=== PATIENT | female | born 1945 | race Caucasian/White ===

== ENCOUNTER 2016-12-18 12:01 | Emergency (ER) | payer MEDICARE ==
[2016-12-18 12:22] VITALS: TEMP 98.3
[2016-12-18] MEDS ORDERED: ASPIRIN 325 MG TAB PO STA (13:28)
--- NOTE | 2016-12-18 14:45 | XR ---
EXAMINATION TYPE: XR chest 2V DATE OF EXAM: 12/18/2016 2:40 PM COMPARISON: 08/10/2012 HISTORY: Chest pain TECHNIQUE: Frontal and lateral views of the chest are obtained. FINDINGS: Heart and mediastinum are normal. Lungs are clear. There is no heart failure. There are no hilar masses. Costophrenic angles are clear. There are sternal wires. IMPRESSION: No active cardiopulmonary disease. Normal heart. No change.
--- NOTE | 2016-12-18 14:52 | ED ---
General Adult HPI - General Chief complaint: Extremity Problem,Nontraumatic Stated complaint: shoulder pain Time Seen by Provider: 12/18/16 12:29 Source: patient Mode of arrival: ambulatory Limitations: no limitations - History of Present Illness Initial comments: 8-year-old female with a past medical history of HLD, HTN, CABG presenting for evaluation of left shoulder/back pain since this morning. She states that she woke up and got out of the shower and was going about her normal day when she experienced pain in her back just below her left shoulder blade. She denies any associated chest pain or shortness of breath although she states that with deep inspiration she can make the pain worse. There is no reproducibility of the pain with left arm movement although she states when she shrugs her left shoulder she can make it a little bit more apparent. She denies any associated symptoms including nausea/vomiting, diaphoresis, lightheadedness/dizziness. There is no preceding injury. Her last stress test was more than 2 years ago and she states that her bypass was in 2006. - Related Data Home Medications Medication Instructions Recorded Confirmed Albuterol Sulfate [Proair Hfa] 2 puff INHALATION RT-Q6H PRN 12/18/16 12/18/16 Aspirin EC [Ecotrin] 325 mg PO DAILY 12/18/16 12/18/16 Atenolol 100 mg PO BID 12/18/16 12/18/16 Atorvastatin [Lipitor] 10 mg PO HS 12/18/16 12/18/16 Calcium Carbonate/Vitamin D3 1 tab PO DAILY 12/18/16 12/18/16 [Calcium 500-Vit D3 600 Tablet] DULoxetine HCL [Cymbalta] 60 mg PO DAILY 12/18/16 12/18/16 Furosemide [Lasix] 40 mg PO DAILY 12/18/16 12/18/16 Lansoprazole [Prevacid] 30 mg PO DAILY 12/18/16 12/18/16 Levothyroxine Sodium [Synthroid] 100 mcg PO DAILY 12/18/16 12/18/16 Lidocaine 5% Patch [Lidoderm] 1 patch TOPICAL DAILY PRN 12/18/16 12/18/16 Meloxicam [Mobic] 7.5 mg PO BID 12/18/16 12/18/16 Mometasone Furoate [Asmanex] 2 puff INHALATION RT-HS 12/18/16 12/18/16 Montelukast [Singulair] 10 mg PO HS 12/18/16 12/18/16 Potassium Chloride [K-Tab ER] 10 meq PO DAILY 12/18/16 12/18/16 amLODIPine [Norvasc] 10 mg PO HS 12/18/16 12/18/16 cloNIDine HCL [Catapres] 0.1 mg PO BID 12/18/16 12/18/16 Previous Rx's Medication Instructions Recorded Ibuprofen [Motrin] 800 mg PO Q8HR PRN #20 tab 12/18/16 Allergies Allergy/AdvReac Type Severity Reaction Status Date / Time hydromorphone [From Dilaudid] Allergy Itching Verified 12/18/16 12:39 Penicillins Allergy Rash/Hives Verified 12/18/16 12:39 Sulfa (Sulfonamide Allergy Rash/Hives Verified 12/18/16 12:39 Antibiotics) GENIE Inhibitors AdvReac Swelling Verified 12/18/16 12:39 Review of Systems ROS Statement: Those systems with pertinent positive or pertinent negative responses have been documented in the HPI. General: Patient denies fever, chills,nausea, or vomiting. HEENT: No visual changes. No eye pain. No nasal symptoms. No dysphagia.No odynophagia. No ENT pain. Cardiac: No chest pain. No palpitations. Pulmonary; No dyspnea. No cough. GI: No abdominal pain. No diarrhea. No constipation. No bowel habit changes. No melena. No hematochezia. : No dysuria.No hematuria. No hesitancy. No urgency. No renal lithiasis history. Musculoskeletal: Positive left upper back pain underneath and inferior to her left scapula, denies myalgias. Orthopedic: Denies fracture history. Denies arthralgias. Integumentary: Denies rash. Denies pruritis. Neurologic: Denies any lateralizing weakness. Denies numbness. Denies tingling. No seizure activity. Denies TIA or CVA. Heme/Onc: Denies anemia. Denies cancer. Denies adenopathy. ROS Other: All systems not noted in ROS Statement are negative. Past Medical History Past Medical History: Asthma, Chest Pain / Angina, GERD/Reflux, Hyperlipidemia, Hypertension, Thyroid Disorder History of Any Multi-Drug Resistant Organisms: None Reported Past Surgical History: Cholecystectomy, Coronary Bypass/CABG, Joint Replacement , Orthopedic Surgery Additional Past Surgical History / Comment(s): shoulder Past Psychological History: No Psychological Hx Reported Smoking Status: Never smoker Past Alcohol Use History: None Reported Past Drug Use History: None Reported General Exam - General Exam Comments Initial Comments: General: The patient is awake and alert, in no distress, and does not appear acutely ill. Eye: Pupils are equal, round and reactive to light, extra-ocular movements are intact; there is normal conjunctiva bilaterally. No signs of icterus. Ears, nose, mouth and throat: There are moist mucous membranes and no oral lesions. Neck: The neck is supple, there is no tenderness or JVD. Cardiovascular: There is a regular rate and rhythm. No murmur, rub or gallop is appreciated. Respiratory: Lungs are clear to auscultation, respirations are non-labored, breath sounds are equal. No wheezes, stridor, rales, or rhonchi. Gastrointestinal: Soft, non-distended, non-tender abdomen without masses or organomegaly noted. There is no rebound or guarding present. No CVA tenderness. Back: There is no tenderness to palpation in the midline. There is no obvious deformity. No rashes noted. Musculoskeletal: Normal ROM, no tenderness, There is no pedal edema. There is no calf tenderness or swelling. Sensation intact. Pulses equal bilaterally 2+. Neurological: CN II-XII intact, There are no obvious motor or sensory deficits. Coordination appears grossly intact. Speech is normal. Skin: Skin is warm and dry and no rashes or lesions are noted. Psychiatric: Cooperative, appropriate mood & affect, normal judgment. Limitations: no limitations Course Vital Signs 12/18/16 12/18/16 12:19 15:16 Temperature 98.3 F Pulse Rate 76 64 Respiratory 18 15 Rate Blood Pressure 146/78 128/59 O2 Sat by Pulse 100 93 L Oximetry EKG Findings - EKG Comments: EKG Findings:: Normal sinus rhythm with a ventricular rate of 60, SAVANNAH 180, QRS 92, QT/QTC 434/434 Medical Decision Making - Medical Decision Making 71-year-old female with a past medical history of H LD, HTN, angina, CABG presented for evaluation of left sided back pain inferior to the left scapula. Pain began after she got the shower and is worse with movement of her left shoulder. On physical examination the pain is reproducible with left shoulder movement and is likely more musculoskeletal than cardiac in etiology. But due to her past medical history of coronary artery disease with CABG will obtain ACS evaluation. Patient has a well score of 0, is afebrile, and denies productive cough. Labs revealed no significant abnormalities, chest x-ray showed no acute process , and second troponin was also negative. Admission for repeat stress test was offered to the patient but she stated that she was adamant about going home today. Given her normal vital signs and test results discussion was had with patient and through shared decision making it was decided that she would be discharged home with instructions to follow-up with her primary care physician on Tuesday. Patient has a HEART score of 3 with a relative risk of MACE at 0.9- 1.7%. She is further advised to return to this facility if her symptoms should worsen or persist. She acknowledged an understanding of this information and agreed with this plan of care. - Lab Data Result diagrams: 12/18/16 14:50 12/18/16 14:50 Lab Results 12/18/16 12/18/16 12/18/16 Range/Units 14:50 14:50 14:50 WBC 5.5 (3.8-10.6) k/uL RBC 5.03 (3.80-5.40) m/uL Hgb 12.5 (11.4-16.0) gm/dL Hct 42.0 (34.0-46.0) % MCV 83.4 (80.0-100.0) fL MCH 24.9 L (25.0-35.0) pg MCHC 29.8 L (31.0-37.0) g/dL RDW 15.3 (11.5-15.5) % Plt Count 227 (150-450) k/uL Neutrophils % 60 % Lymphocytes % 26 % Monocytes % 6 % Eosinophils % 3 % Basophils % 1 % Neutrophils # 3.3 (1.3-7.7) k/uL Lymphocytes # 1.4 (1.0-4.8) k/uL Monocytes # 0.3 (0-1.0) k/uL Eosinophils # 0.2 (0-0.7) k/uL Basophils # 0.1 (0-0.2) k/uL Hypochromasia Marked Sodium 144 (137-145) mmol/L Potassium 4.6 (3.5-5.1) mmol/L Chloride 102 (98-107) mmol/L Carbon Dioxide 30 (22-30) mmol/L Anion Gap 12 mmol/L BUN 16 (7-17) mg/dL Creatinine 0.91 (0.52-1.04) mg/dL Est GFR (MDRD) Af Amer >60 (>60 ml/min/1.73 sqM) Est GFR (MDRD) Non-Af >60 (>60 ml/min/1.73 sqM) Glucose 98 (74-99) mg/dL Calcium 9.6 (8.4-10.2) mg/dL Troponin I <0.012 (0.000-0.034) ng/mL 12/18/16 Range/Units 16:43 WBC (3.8-10.6) k/uL RBC (3.80-5.40) m/uL Hgb (11.4-16.0) gm/dL Hct (34.0-46.0) % MCV (80.0-100.0) fL MCH (25.0-35.0) pg MCHC (31.0-37.0) g/dL RDW (11.5-15.5) % Plt Count (150-450) k/uL Neutrophils % % Lymphocytes % % Monocytes % % Eosinophils % % Basophils % % Neutrophils # (1.3-7.7) k/uL Lymphocytes # (1.0-4.8) k/uL Monocytes # (0-1.0) k/uL Eosinophils # (0-0.7) k/uL Basophils # (0-0.2) k/uL Hypochromasia Sodium (137-145) mmol/L Potassium (3.5-5.1) mmol/L Chloride (98-107) mmol/L Carbon Dioxide (22-30) mmol/L Anion Gap mmol/L BUN (7-17) mg/dL Creatinine (0.52-1.04) mg/dL Est GFR (MDRD) Af Amer (>60 ml/min/1.73 sqM) Est GFR (MDRD) Non-Af (>60 ml/min/1.73 sqM) Glucose (74-99) mg/dL Calcium (8.4-10.2) mg/dL Troponin I <0.012 (0.000-0.034) ng/mL Disposition Clinical Impression: Back pain Disposition: HOME SELF-CARE Condition: Stable Prescriptions: Ibuprofen [Motrin] 800 mg PO Q8HR PRN #20 tab PRN Reason: Analgesia Referrals: Rafi Tiwari MD [Primary Care Provider] - 1-2 days Time of Disposition: 17:35
[2016-12-18 15:02] LABS: Basophils # (A) 0.1 k/uL (0-0.2); Basophils % (A) 1 %; CHCM 30.1; Eosinophils # (A) 0.2 k/uL (0-0.7); Eosinophils % (A) 3 %; HDW 3.08; HGB 12.5 gm/dL (11.4-16.0); Hypochromasia Marked; Luc # (Auto) 0.18; Luc % (Auto) 3; Lymphocytes # (A) 1.4 k/uL (1.0-4.8); Lymphocytes % (A) 26 %; MCH 24.9 pg (25.0-35.0); MCHC 29.8 g/dL (31.0-37.0); MCV 83.4 fL (80.0-100.0); Mean Platelet Volume 9.1; Monocytes # (A) 0.3 k/uL (0-1.0); Monocytes % (A) 6 %; Neutrophils # (A) 3.3 k/uL (1.3-7.7); Neutrophils % (A) 60 %; RBC 5.03 m/uL (3.80-5.40); RDW 15.3 % (11.5-15.5); WBC 5.5 k/uL (3.8-10.6); WBC (Perox) 5.45
[2016-12-18 15:20] LABS: Anion Gap 12 mmol/L; Blood Urea Nitrogen 16 mg/dL (7-17); Calcium 9.6 mg/dL (8.4-10.2); Carbon Dioxide 30 mmol/L (22-30); Chloride 102 mmol/L (98-107); Glucose 98 mg/dL (74-99); Non-African American GFR(MDRD) >60 (>60 ml/min/1.73 sqM); Potassium 4.6 mmol/L (3.5-5.1); Sodium 144 mmol/L (137-145)
[2016-12-18 17:52] VITALS: BP 134/62; PULSE 75; RESP 18
== END 2016-12-18 17:51 | disposition home or self-care (01) ==
LOC: EC 12:01
DX: M54.9 Dorsalgia, unspecified (principal); M25.512 Pain in left shoulder; I10 Essential (primary) hypertension; E07.9 Disorder of thyroid, unspecified; E78.5 Hyperlipidemia, unspecified; K21.9 Gastro-esophageal reflux disease without esophagitis; J45.909 Unspecified asthma, uncomplicated; Z95.1 Presence of aortocoronary bypass graft; I25.10 Atherosclerotic heart disease of native coronary artery without angina pectoris; Z79.82 Long term (current) use of aspirin; Z79.899 Other long term (current) drug therapy; Z88.5 Allergy status to narcotic agent; Z88.0 Allergy status to penicillin; Z88.2 Allergy status to sulfonamides; Z88.8 Allergy status to other drugs, medicaments and biological substances; X58.XXXA Exposure to other specified factors, initial encounter
CPT/HCPCS: 36415; 71020; 80048; 84484; 85025; 93005; 99283

== ENCOUNTER 2017-06-29 11:29 | Emergency (ER) | payer OTHER, MEDICARE ==
[2017-06-29] MEDS ORDERED: DIPH,PERTUS(ACELL)TETVAC-LF 0.5 ML VIAL IM ONE (11:53)
[2017-06-29 12:02] VITALS: RESP 18
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
--- NOTE | 2017-06-29 12:31 | XR ---
EXAMINATION TYPE: XR knee complete bilateral DATE OF EXAM: 06/29/2017 COMPARISON: NONE HISTORY: Pain TECHNIQUE: 3 views of each knee are submitted. FINDINGS: Postsurgical change involving the right knee. Vascular calcifications noted. Postsurgical change involving the left knee with numerous surgical clips additionally within the soft tissues. Mild diffuse osteopenia. Vascular calcifications noted. IMPRESSION: 1. No acute fracture or dislocation. 2. Postsurgical changes.
--- NOTE | 2017-06-29 12:33 | XR ---
EXAMINATION TYPE: XR chest 2V DATE OF EXAM: 06/29/2017 COMPARISON: 12/18/2016 TECHNIQUE: PA and lateral views submitted. HISTORY: Pain FINDINGS: The lungs are clear and there is no pneumothorax, pleural effusion, or focal pneumonia. Arthropathy left shoulder and postsurgical change right shoulder. Sternotomy wires noted. Hypertrophic and degen erative change of the spine. Heart is prominent. Limited inspiration limits assessment. Apical pleura l IMPRESSION: 1. No acute process.
[2017-06-29 13:19] VITALS: BP 124/60; PULSE 69; TEMP 98
== END 2017-06-29 13:19 | disposition home or self-care (01) ==
LOC: EC 11:29
DX: S80.02XA Contusion of left knee, initial encounter (principal); S80.01XA Contusion of right knee, initial encounter; S50.812A Abrasion of left forearm, initial encounter; J45.909 Unspecified asthma, uncomplicated; E78.5 Hyperlipidemia, unspecified; I10 Essential (primary) hypertension; K21.9 Gastro-esophageal reflux disease without esophagitis; E07.9 Disorder of thyroid, unspecified; Z23 Encounter for immunization; Z79.82 Long term (current) use of aspirin; Z79.899 Other long term (current) drug therapy; Z88.5 Allergy status to narcotic agent; Z88.0 Allergy status to penicillin; Z88.2 Allergy status to sulfonamides; Z88.8 Allergy status to other drugs, medicaments and biological substances; Z96.659 Presence of unspecified artificial knee joint; Z98.61 Coronary angioplasty status; V59.59XA Passenger in pick-up truck or van injured in collision with other motor vehicles in traffic accident, initial encounter; Y92.410 Unspecified street and highway as the place of occurrence of the external cause
CPT/HCPCS: 71020; 90471; 90715; 99284

== ENCOUNTER → 2018-11-23 | Outpatient (CLI) | payer MEDICARE ==
--- NOTE | 2018-11-23 14:44 | CT ---
EXAMINATION TYPE: CT abdomen w con DATE OF EXAM: 11/23/2018 COMPARISON: 09/02/2016 HISTORY: LUQ PAIN CT DLP: 1733.20 mGycm CONTRAST: CT scan of the abdomen is performed with Oral Contrast and with IV Contrast, patient injected with 10 0 mL of Isovue 300. FINDINGS: LUNG BASES-: No visible nodule. No infiltrate. Moderate fixed hiatal hernia LIVER/GB: Cholecystectomy clips are noted. Mild fatty liver. No space occupying hepatic lesion. Bi liary tree is of normal caliber. PANCREAS: No inflammation. No distinct mass. SPLEEN: No splenic enlargement. No lesion seen. ADRENALS: No nodule. No thickening. KIDNEYS/BLADDER: No hydronephrosis. No nephrolithiasis. No distinct renal mass. Urinary bladder g rossly unremarkable. BOWEL: Normal appendix. Normal bowel caliber. No inflammation. LYMPH NODES: No greater than 1cm abdominal or pelvic lymph nodes are appreciated. AORTA: No significant abnormality. OSSEOUS STRUCTURES: No significant abnormality is seen. OTHER: No significant additional abnormality is seen. IMPRESSION: 1. No significant abnormality to account for the patient's symptoms. 2. Moderate fixed hiatal hernia.
== END | disposition home or self-care (01) ==
LOC: RADCTMAIN 12:56
PROVIDERS: ATTEND Internal Medicine
DX: K44.9 Diaphragmatic hernia without obstruction or gangrene (principal)
CPT/HCPCS: 82565; 84520; 74160; 36415; Q9967

== ENCOUNTER → 2018-11-27 | Outpatient (CLI) | payer MEDICARE ==
--- NOTE | 2018-11-27 14:35 | XR ---
Cervical spine HISTORY: Spondylosis, neck pain 6 views of the cervical spine No comparisons Facet arthropathy changes are extensive. Patient is post median sternotomy. Oblique images show sunil inal encroachment at C5-6 bilaterally. There is motion on the exam. Lower foramina are not well evalu ated on the right. There is a retrolisthesis grade 1 C3-4, C4-5 and C5-6. Loss of disc height present C3-4, C4-5 and C5-6. Vertebral bodies show preserved height, there is multilevel spondylosis. Bone m ineralization is reduced. Odontoid view not optimal. Patient is post median sternotomy. The aorta is dense. C7-T1 not well seen. IMPRESSION: Degenerative disc disease and facet arthropathy. Osteopenia. Some limitations.
== END ==
LOC: RADXRMAIN 13:27
PROVIDERS: ATTEND Internal Medicine
DX: M50.30 Other cervical disc degeneration, unspecified cervical region (principal); M46.92 Unspecified inflammatory spondylopathy, cervical region; M85.88 Other specified disorders of bone density and structure, other site
CPT/HCPCS: 72050

== ENCOUNTER 2019-01-21 22:36 | Inpatient (IN) | payer MEDICARE ==
[2019-01-21] MEDS ORDERED: HEPARIN SODIUM,PORCINE 5,000 UNIT/ML 1 ML VIAL IV STA (23:07)
[2019-01-21] MEDS ORDERED: NITROGLYCERIN OINT 1 INCH/GM PACKET TOPICAL STA (23:07)
--- NOTE | 2019-01-21 23:14 | ED ---
Chest Pain HPI - General Chief Complaint: Chest Pain Stated Complaint: Chest Pain Time Seen by Provider: 01/21/19 22:42 Source: patient, family, RN notes reviewed, old records reviewed Mode of arrival: ambulatory Limitations: no limitations - History of Present Illness Initial Comments: This is a 73-year-old female history of heart disease in the past with a quad bypass 2006 who states she had the onset around 10 PM this evening of retrosternal mid chest pain 7/10 severity with right shoulder pain associated with it. She states it was dull lasted about 30 minutes. Then it resolved slowly. She states additionally she had a similar episode about 2 weeks ago that lasted 2 hours. Currently she has no pain she did have nausea with this episode no shortness of breath or other symptoms. She does inform me that Dr. Bustos her hydrographical technical officer stated that she may have one of the grafts is failing. MD Complaint: chest pain - Related Data Home Medications Medication Instructions Recorded Confirmed Albuterol Sulfate [Proair Hfa] 2 puff INHALATION RT-Q6H PRN 12/18/16 01/21/19 Aspirin EC [Ecotrin] 325 mg PO DAILY 12/18/16 01/21/19 Atenolol 100 mg PO BID 12/18/16 01/21/19 Atorvastatin [Lipitor] 10 mg PO HS 12/18/16 01/21/19 Calcium Carbonate/Vitamin D3 1 tab PO DAILY 12/18/16 01/21/19 [Calcium 500-Vit D3 600 Tablet] Furosemide [Lasix] 40 mg PO DAILY 12/18/16 01/21/19 Lansoprazole [Prevacid] 30 mg PO DAILY 12/18/16 01/21/19 Levothyroxine Sodium [Synthroid] 100 mcg PO DAILY 12/18/16 01/21/19 Lidocaine 5% Patch [Lidoderm] 1 patch TOPICAL DAILY PRN 12/18/16 01/21/19 Mometasone Furoate [Asmanex] 1 puff INHALATION RT-HS 12/18/16 01/21/19 Montelukast [Singulair] 10 mg PO HS 12/18/16 01/21/19 Potassium Chloride [K-Tab ER] 10 meq PO DAILY 12/18/16 01/21/19 amLODIPine [Norvasc] 10 mg PO HS 12/18/16 01/21/19 cloNIDine HCL [Catapres] 0.1 mg PO BID 12/18/16 01/21/19 DULoxetine HCL [Cymbalta] 90 mg PO DAILY 01/21/19 01/21/19 Dexlansoprazole [Dexilant] 60 mg PO DAILY PRN 01/21/19 01/21/19 Allergies Allergy/AdvReac Type Severity Reaction Status Date / Time hydromorphone [From Dilaudid] Allergy Itching Verified 01/21/19 23:00 Penicillins Allergy Rash/Hives Verified 01/21/19 23:00 Sulfa (Sulfonamide Allergy Rash/Hives Verified 01/21/19 23:00 Antibiotics) GENIE Inhibitors AdvReac Swelling Verified 01/21/19 23:00 Review of Systems ROS Statement: Those systems with pertinent positive or pertinent negative responses have been documented in the HPI. ROS Other: All systems not noted in ROS Statement are negative. EKG Findings - EKG Results: EKG: interpreted by ERMMadison, sinus rhythm (Sinus rhythm of 80. Interval 150 QRS duration 94 QT since QTC 370/[address] configuration there is evidence of inferior changes also some lateral changes. This is consistent with an EKG dated 12/10/16) Past Medical History Past Medical History: Asthma, Chest Pain / Angina, GERD/Reflux, Hyperlipidemia, Hypertension, Thyroid Disorder History of Any Multi-Drug Resistant Organisms: None Reported Past Surgical History: Cholecystectomy, Coronary Bypass/CABG, Joint Replacement , Orthopedic Surgery Additional Past Surgical History / Comment(s): shoulder Past Psychological History: No Psychological Hx Reported Smoking Status: Never smoker Past Alcohol Use History: None Reported Past Drug Use History: None Reported General Exam - General Exam Comments Initial Comments: This is a well-developed well-nourished awake alert oriented 3 female Limitations: no limitations General appearance: alert, in no apparent distress Head exam: Present: atraumatic, normocephalic, normal inspection Eye exam: Present: normal appearance, PERRL, EOMI. Absent: scleral icterus, conjunctival injection, periorbital swelling ENT exam: Present: normal exam, mucous membranes moist Neck exam: Present: normal inspection. Absent: tenderness, meningismus, lymphadenopathy Respiratory exam: Present: normal lung sounds bilaterally. Absent: respiratory distress, wheezes, rales, rhonchi, stridor Cardiovascular Exam: Present: regular rate, normal rhythm, normal heart sounds. Absent: systolic murmur, diastolic murmur, rubs, gallop, clicks GI/Abdominal exam: Present: soft, normal bowel sounds. Absent: distended, tenderness, guarding, rebound, rigid Extremities exam: Present: normal inspection, full ROM, normal capillary refill. Absent: tenderness, pedal edema, joint swelling, calf tenderness Back exam: Present: normal inspection Neurological exam: Present: alert, oriented X3, CN II-XII intact Psychiatric exam: Present: normal affect, normal mood Skin exam: Present: warm, dry, intact, normal color. Absent: rash Course Vital Signs 01/21/19 22:37 Temperature 98 F Pulse Rate 75 Respiratory 16 Rate Blood Pressure 142/73 O2 Sat by Pulse 100 Oximetry - Reevaluation(s) Reevaluation #1: 01/21/19 23:56 No change in patient's status she is pain-free at this time Chest Pain MDM - MDM I did review the imaging no acute findings are seen. Patient does have evidence of ACS/unstable angina she will be admitted I did discuss this with the patient and her and with Dr. Tiwari. Critical Care Time Critical Care Time: Yes Critical Care Time: 31 minutes of critical care time which includes initial presentation with history physical labs x-rays reevaluation patient several occasions discuss with the patient regarding findings review of old charting was available discussed with Dr. Tiwari admission orders and documentation of the above. Disposition Clinical Impression: Acute coronary syndrome, Unstable angina pectoris Disposition: ADMITTED IP TO THIS [facility] Condition: Stable Referrals: Rafi Tiwari MD [Primary Care Provider] - 1-2 days
[2019-01-21] MEDS ORDERED: HEPARIN SOD,PORK IN 0.45% NACL 25,000 UNIT in 0.45% NACL 1 250ML.BAG IV SCH (23:15)
[2019-01-21 23:24] LABS: Basophils # (A) 0.1 k/uL (0-0.2); Basophils % (A) 1 %; Eosinophils # (A) 0.3 k/uL (0-0.7); Eosinophils % (A) 3 %; HCT 40.4 % (34.0-46.0); HGB 12.7 gm/dL (11.4-16.0); Hypochromasia Moderate; Lymphocytes # (A) 2.3 k/uL (1.0-4.8); Lymphocytes % (A) 28 %; MCH 26.3 pg (25.0-35.0); MCHC 31.5 g/dL (31.0-37.0); MCV 83.6 fL (80.0-100.0); Monocytes # (A) 0.6 k/uL (0-1.0); Monocytes % (A) 8 %; Neutrophils # (A) 4.8 k/uL (1.3-7.7); Neutrophils % (A) 58 %; Platelet Count 271 k/uL (150-450); RBC 4.83 m/uL (3.80-5.40); RDW 15.1 % (11.5-15.5); WBC 8.2 k/uL (3.8-10.6)
[2019-01-21 23:32] LABS: INR 0.9 (<1.2); Partial Thromboplastin Time 22.4 sec (22.0-30.0); Prothrombin Time 9.9 sec (9.0-12.0)
[2019-01-21 23:33] LABS: Albumin 4.2 g/dL (3.5-5.0); Calcium 9.7 mg/dL (8.4-10.2); Potassium 4.4 mmol/L (3.5-5.1); Total Bilirubin 0.6 mg/dL (0.2-1.3); Total Protein 7.3 g/dL (6.3-8.2)
[2019-01-21] MEDS ORDERED: SODIUM CHLORIDE 0.9% 1,000 ML IV SCH (23:45)
[2019-01-21] MEDS ORDERED: NITROGLYCERIN SL TABS 0.4 MG TAB SUBLINGUAL PRN (23:57)
[2019-01-21] MEDS ORDERED: ALBUTEROL NEBULIZED 2.5 MG/3 ML INHALATION PRN (23:59)
[2019-01-21] MEDS ORDERED: PANTOPRAZOLE 40 MG TABLET PO PRN (23:59)
--- NOTE | 2019-01-22 | XR ---
EXAM: XR Chest, 2 Views CLINICAL HISTORY: ITS.REASON XR Reason: Chest Pain TECHNIQUE: Frontal and lateral views of the chest. COMPARISON: No relevant prior studies available. FINDINGS: Lungs: Unremarkable. No consolidation. Pleural space: Unremarkable. No pneumothorax. Heart: Unremarkable. No cardiomegaly. Mediastinum: A large hiatal hernia appears to be present. Bones/joints: No acute fracture. IMPRESSION: A large hiatal hernia appears to be present.
--- NOTE | 2019-01-22 00:04 | ED ---
Medical Decision Making - Medical Decision Making Cardiac monitoring: Cardiac monitoring was ordered patient did present with chest pain consistent with unstable angina, acute coronary syndrome. Monitoring was 4 evaluation of dysrhythmia. Normal sinus rhythm rate of [address]-T wave changes seen at the time of initial evaluation. - Lab Data Result diagrams: 01/21/19 22:50 01/21/19 22:50 Lab Results 01/21/19 01/21/19 01/21/19 Range/Units 22:50 22:50 22:50 WBC 8.2 (3.8-10.6) k/uL RBC 4.83 (3.80-5.40) m/uL Hgb 12.7 (11.4-16.0) gm/dL Hct 40.4 (34.0-46.0) % MCV 83.6 (80.0-100.0) fL MCH 26.3 (25.0-35.0) pg MCHC 31.5 (31.0-37.0) g/dL RDW 15.1 (11.5-15.5) % Plt Count 271 (150-450) k/uL Neutrophils % 58 % Lymphocytes % 28 % Monocytes % 8 % Eosinophils % 3 % Basophils % 1 % Neutrophils # 4.8 (1.3-7.7) k/uL Lymphocytes # 2.3 (1.0-4.8) k/uL Monocytes # 0.6 (0-1.0) k/uL Eosinophils # 0.3 (0-0.7) k/uL Basophils # 0.1 (0-0.2) k/uL Hypochromasia Moderate PT (9.0-12.0) sec INR (<1.2) APTT (22.0-30.0) sec Sodium 140 (137-145) mmol/L Potassium 4.4 (3.5-5.1) mmol/L Chloride 103 (98-107) mmol/L Carbon Dioxide 28 (22-30) mmol/L Anion Gap 9 mmol/L BUN 23 H (7-17) mg/dL Creatinine 1.08 H (0.52-1.04) mg/dL Est GFR (CKD-EPI)AfAm 59 (>60 ml/min/1.73 sqM) Est GFR (CKD-EPI)NonAf 52 (>60 ml/min/1.73 sqM) Glucose 143 H (74-99) mg/dL Calcium 9.7 (8.4-10.2) mg/dL Magnesium 2.0 (1.6-2.3) mg/dL Total Bilirubin 0.6 (0.2-1.3) mg/dL AST 19 (14-36) U/L ALT 31 (9-52) U/L Alkaline Phosphatase 118 (38-126) U/L Troponin I (0.000-0.034) ng/mL NT-Pro-B Natriuret Pep 609 pg/mL Total Protein 7.3 (6.3-8.2) g/dL Albumin 4.2 (3.5-5.0) g/dL 01/21/19 01/21/19 Range/Units 22:50 22:50 WBC (3.8-10.6) k/uL RBC (3.80-5.40) m/uL Hgb (11.4-16.0) gm/dL Hct (34.0-46.0) % MCV (80.0-100.0) fL MCH (25.0-35.0) pg MCHC (31.0-37.0) g/dL RDW (11.5-15.5) % Plt Count (150-450) k/uL Neutrophils % % Lymphocytes % % Monocytes % % Eosinophils % % Basophils % % Neutrophils # (1.3-7.7) k/uL Lymphocytes # (1.0-4.8) k/uL Monocytes # (0-1.0) k/uL Eosinophils # (0-0.7) k/uL Basophils # (0-0.2) k/uL Hypochromasia PT 9.9 (9.0-12.0) sec INR 0.9 (<1.2) APTT 22.4 (22.0-30.0) sec Sodium (137-145) mmol/L Potassium (3.5-5.1) mmol/L Chloride (98-107) mmol/L Carbon Dioxide (22-30) mmol/L Anion Gap mmol/L BUN (7-17) mg/dL Creatinine (0.52-1.04) mg/dL Est GFR (CKD-EPI)AfAm (>60 ml/min/1.73 sqM) Est GFR (CKD-EPI)NonAf (>60 ml/min/1.73 sqM) Glucose (74-99) mg/dL Calcium (8.4-10.2) mg/dL Magnesium (1.6-2.3) mg/dL Total Bilirubin (0.2-1.3) mg/dL AST (14-36) U/L ALT (9-52) U/L Alkaline Phosphatase (38-126) U/L Troponin I <0.012 (0.000-0.034) ng/mL NT-Pro-B Natriuret Pep pg/mL Total Protein (6.3-8.2) g/dL Albumin (3.5-5.0) g/dL Disposition Clinical Impression: Acute coronary syndrome, Unstable angina pectoris Disposition: ADMITTED IP TO THIS HOSP Condition: Stable Referrals: Rafi Tiwari MD [Primary Care Provider] - 1-2 days
[2019-01-22] MEDS: NITROGLYCERIN OINT 1 INCH/GM PACKET TOPICAL SCH ×3 (02:00→17:33)
[2019-01-22] MEDS: LEVOTHYROXINE 100 MCG TAB PO SCH (05:06)
[2019-01-22 06:24] LABS: Cholesterol 111 mg/dL (<200); HDL Cholesterol 46 mg/dL (40-60); LDL Cholesterol,Calculated 40 mg/dL (0-99); Triglycerides 124 mg/dL (<150)
[2019-01-22] MEDS ORDERED: ATORVASTATIN 80 MG TAB PO STA (08:41)
[2019-01-22] MEDS ORDERED: ALPRAZolam 0.5 MG TAB PO PRN (08:41)
[2019-01-22] MEDS ORDERED: ALPRAZolam 0.25 MG TAB PO PRN (08:41)
[2019-01-22] MEDS ORDERED: NITROGLYCERIN SL TABS 0.4 MG TAB SUBLINGUAL PRN ×2 (08:41→13:18)
[2019-01-22] MEDS ORDERED: SODIUM CHLORIDE 0.9% 1,000 ML in EMPTY BAG 1 BAG IV ONE (08:41)
[2019-01-22] MEDS ORDERED: ASPIRIN 325 MG TAB PO STA (08:41)
[2019-01-22] MEDS ORDERED: NON-FORMULARY DRUG (Lansoprazole [Prevacid] 30 MG) PO SCH (09:00)
[2019-01-22] MEDS ORDERED: ASPIRIN 325 MG TAB PO SCH (09:00)
[2019-01-22] MEDS ORDERED: FUROSEMIDE 40 MG TAB PO SCH (09:00)
[2019-01-22] MEDS ORDERED: LIDOCAINE 5% PATCH TOPICAL PRN (09:00)
--- NOTE | 2019-01-22 09:53 | P.CRDCN ---
History of Present Illness History of present illness: This is a pleasant 73-year-old female past medical history significant for coronary artery disease status post four-vessel bypass grafting in 2006 with MORALES-LAD, SVG-D1, SVG-OM1 and SVG-PLB, hypertension, dyslipidemia, asthma and gastroesophageal reflux disease. She follows in the office with Dr. Bustos. We have been asked to see her in consultation for symptoms of chest discomfort. She states last night just as she laid down in bed she got an achy sensation in the mid-sternal region with radiation to the right shoulder. This lasted about 30 minutes and subsided on its own on the way to the hospital. She didn't take nitroglycerin or aspirin. She denies radiation down the arm, into the back, neck or jaw. She denies associated shortness of breath, dizziness, nausea, vomiting, diaphoresis or palpitations. Initial EKG obtained on admission reveals sinus mechanism with ST depression noted in the lateral leads as well as nonspecific inferior abnormalities. The inferior abnormalities have been noted on previous EKGs however changes in the lateral leads are new. Repeat EKG this morning shows resolution of the ST changes in lateral leads. Chest x-ray reveals large hiatal hernia. Laboratory data reviewed, WBC 8.2, hemoglobin 12.7, platelets 271, sodium 140, potassium 4.4, creatinine 1.08, GFR 52, magnesium 2.0, cardiac enzymes negative 3, NT proBNP 609, LDL 40 and HDL 46. Current cardiac medications include Lasix 40 mg daily, atenolol 100 mg twice a day, atorvastatin 10 mg daily, amlodipine 10 mg daily, Catapres 0.1 mg twice a day and aspirin 325 mg daily. Most recently she underwent stress test in 2017 which reveals a partially reversible defect in anterolateral and anteroapical defect. At that time she was asymptomatic with good exercise tolerance and clinical observation was recommended. Most recent echocardiogram obtained in the office September 2017 reveals preserved left ventricular systolic function with ejection fraction 55%, moderate concentric left ventricular hypertrophy, left ventricular filling pattern suggestive of diastolic dysfunction, mild mitral regurgitation, mildly calcified aortic valve , mild pulmonary hypertension with PA has been a 51 mmHg, mild to moderate tricuspid regurgitation and mild pulmonic regurgitation. At the time of my exam: CONSTITUTIONAL: Denies fever. Denies chills. EYES: Denies blurred vision. Denies vision changes. Denies eye pain. EARS, NOSE, MOUTH & THROAT: Denies headache. Denies sore throat. Denies ear pain. CARDIOVASCULAR: Denies chest pain. Denies shortness of breath. Denies orthopnea. Denies PND. Denies palpitations. RESPIRATORY: Denies cough. GASTROINTESTINAL: Denies abdominal pain. Denies diarrhea. Denies constipation. Denies nausea. Denies vomiting. MUSCULOSKELETAL: Denies myalgias. INTEGUMENTARY: Denies pruitis. Denies rash. NEUROLOGIC: Denies numbness. Denies tingling. Denies weakness. PSYCHIATRIC: Denies anxiety. Denies depression. ENDOCRINE: Denies fatigue. Denies weight change. Denies polydipsia. Denies polyurina. GENITOURINARY: Denies burning, hematuria or urgency with micturation. HEMATOLOGIC: Denies history of anemia. Denies bleeding. Blood pressure 152/73 heart rate 64 afebrile maintaining oxygen saturation on room air GENERAL: This is a 73-year-old female in no apparent distress at the time of my examination. HEENT: Head is atraumatic, normocephalic. Pupils are equal, round. Sclerae anicteric. Conjunctivae are clear. Mucous membranes of the mouth are moist. Neck is supple. There is no jugular venous distention. No carotid bruit is heard. LUNGS: Clear to auscultation no wheezes, rales or rhonchi. No chest wall tenderness is noted on palpation or with deep breathing. HEART: Regular rate and rhythm with systolic ejection murmur at the base, no rubs or gallops. S1 and S2 heard. ABDOMEN: Soft, nontender. Bowel sounds are heard. No organomegaly noted. EXTREMITIES: No evidence of peripheral edema and no calf tenderness noted. VASCULAR: Radial and dorsalis pedis pulses palpated, no evidence of clubbing. NEUROLOGIC: Patient is awake, alert and oriented x3. ASSESSMENT Unstable angina with EKG changes History of coronary artery disease status post bypass grafting Hypertension Dyslipidemia Asthma Gastroesophageal reflux disease Hiatal hernia PLAN Symptoms are concerning for unstable angina with significant EKG changes. Obtain 2D echocardiogram and doppler study to assess cardiac structure and function. Recommend proceeding with cardiac catheterization to assess for progression of coronary artery disease. I have discussed the risks, benefits and alternative therapies for the above-mentioned procedure and for both sedation/analgesia as well as necessary blood product administration, if indicated, as they pertain to this patient. The patient has indicated understanding and acceptance of the risks and procedures discussed. Questions have been answered appropriately and she is agreeable to move forward with the above-stated procedure. Orders have been placed and this will take place this morning. Further recommendations to follow based on catheterization results. Thank you kindly for this consultation. Nurse Practitioner note has been reviewed, I agree with a documented findings and plan of care. Patient was seen and examined. Past Medical History Past Medical History: Asthma, Chest Pain / Angina, GERD/Reflux, Hyperlipidemia, Hypertension, Thyroid Disorder History of Any Multi-Drug Resistant Organisms: None Reported Past Surgical History: Cholecystectomy, Coronary Bypass/CABG, Joint Replacement , Orthopedic Surgery Additional Past Surgical History / Comment(s): shoulder, quad bypass 2006. Past Anesthesia/Blood Transfusion Reactions: No Reported Reaction Past Psychological History: No Psychological Hx Reported Smoking Status: Never smoker Past Alcohol Use History: None Reported Past Drug Use History: None Reported Medications and Allergies Home Medications Medication Instructions Recorded Confirmed Type Albuterol Sulfate [Proair Hfa] 2 puff INHALATION RT-Q6H PRN 12/18/16 01/21/19 History Aspirin EC [Ecotrin] 325 mg PO DAILY 12/18/16 01/21/19 History Atenolol 100 mg PO BID 12/18/16 01/21/19 History Atorvastatin [Lipitor] 10 mg PO HS 12/18/16 01/21/19 History Calcium Carbonate/Vitamin D3 1 tab PO DAILY 12/18/16 01/21/19 History [Calcium 500-Vit D3 600 Tablet] Furosemide [Lasix] 40 mg PO DAILY 12/18/16 01/21/19 History Lansoprazole [Prevacid] 30 mg PO DAILY 12/18/16 01/21/19 History Levothyroxine Sodium [Synthroid] 100 mcg PO DAILY 12/18/16 01/21/19 History Lidocaine 5% Patch [Lidoderm] 1 patch TOPICAL DAILY PRN 12/18/16 01/21/19 History Mometasone Furoate [Asmanex] 1 puff INHALATION RT-HS 12/18/16 01/21/19 History Montelukast [Singulair] 10 mg PO HS 12/18/16 01/21/19 History Potassium Chloride [K-Tab ER] 10 meq PO DAILY 12/18/16 01/21/19 History amLODIPine [Norvasc] 10 mg PO HS 12/18/16 01/21/19 History cloNIDine HCL [Catapres] 0.1 mg PO BID 12/18/16 01/21/19 History DULoxetine HCL [Cymbalta] 90 mg PO DAILY 01/21/19 01/21/19 History Allergies Allergy/AdvReac Type Severity Reaction Status Date / Time hydromorphone [From Dilaudid] Allergy Itching Verified 01/21/19 23:00 Penicillins Allergy Rash/Hives Verified 01/21/19 23:00 Sulfa (Sulfonamide Allergy Rash/Hives Verified 01/21/19 23:00 Antibiotics) GENIE Inhibitors AdvReac Swelling Verified 01/21/19 23:00 Physical Exam Vitals: Vital Signs Temp Pulse Pulse Resp BP BP Pulse Ox 01/22/19 07:20 98.5 F 64 18 152/73 96 01/22/19 03:29 97.6 F 61 18 103/53 98 01/22/19 01:15 64 17 01/22/19 01:08 98.1 F 67 18 136/73 96 01/22/19 00:24 17 01/22/19 00:01 77 20 110/58 100 01/21/19 23:57 100 01/21/19 22:37 98 F 75 16 142/73 100 Intake and Output 01/21/19 01/22/19 01/22/19 22:59 06:59 14:59 Other: Voiding Method Toilet # Voids 1 Weight 108.862 kg Results 01/21/19 22:50 01/21/19 22:50 Cardiac Enzymes 01/21/19 01/21/19 01/21/19 Range/Units 01:00 22:50 22:50 AST 19 (14-36) U/L Troponin I <0.012 <0.012 (0.000-0.034) ng/mL 01/22/19 Range/Units 05:40 AST (14-36) U/L Troponin I 0.034 (0.000-0.034) ng/mL Coagulation 01/21/19 01/22/19 Range/Units 22:50 05:40 PT 9.9 (9.0-12.0) sec APTT 22.4 38.2 H (22.0-30.0) sec Lipids 01/22/19 Range/Units 05:40 Triglycerides 124 (<150) mg/dL Cholesterol 111 (<200) mg/dL HDL Cholesterol 46 (40-60) mg/dL CBC 01/21/19 Range/Units 22:50 WBC 8.2 (3.8-10.6) k/uL RBC 4.83 (3.80-5.40) m/uL Hgb 12.7 (11.4-16.0) gm/dL Hct 40.4 (34.0-46.0) % Plt Count 271 (150-450) k/uL Comprehensive Metabolic Panel 01/21/19 Range/Units 22:50 Sodium 140 (137-145) mmol/L Potassium 4.4 (3.5-5.1) mmol/L Chloride 103 (98-107) mmol/L Carbon Dioxide 28 (22-30) mmol/L BUN 23 H (7-17) mg/dL Creatinine 1.08 H (0.52-1.04) mg/dL Glucose 143 H (74-99) mg/dL Calcium 9.7 (8.4-10.2) mg/dL AST 19 (14-36) U/L ALT 31 (9-52) U/L Alkaline Phosphatase 118 (38-126) U/L Total Protein 7.3 (6.3-8.2) g/dL Albumin 4.2 (3.5-5.0) g/dL Current Medications Generic Name Dose Route Start Last Admin Trade Name Freq PRN Reason Stop Dose Admin Albuterol Sulfate 2.5 mg 01/21/19 23:59 Ventolin Nebulized INHALATION RT-Q6H PRN Shortness Of Breath Amlodipine Besylate 10 mg 01/22/19 21:00 Norvasc PO HS [facility] Aspirin 325 mg 01/22/19 09:00 Aspirin PO DAILY [facility] Atenolol 100 mg 01/22/19 09:00 Tenormin PO BID [facility] Atorvastatin Calcium 10 mg 01/22/19 21:00 Lipitor PO HS [facility] Calcium Carbonate 1 each 01/22/19 09:00 Oscal 500+D PO DAILY [facility] Clonidine 0.1 mg 01/22/19 09:00 Catapres PO BID [facility] Duloxetine HCl 90 mg 01/22/19 09:00 Cymbalta PO DAILY [facility] Fluticasone Propionate 1 puff 01/22/19 20:00 Flovent 110 Mcg Inhaler INHALATION RT-BID [facility] Furosemide 40 mg 01/22/19 09:00 Lasix PO DAILY [facility] Heparin Sodium/Sodium Chloride 250 mls @ 9.79 mls/hr 01/21/19 23:15 01/21/19 23:28 25,000 unit/ Sodium Chloride IV 9 units/kg/hr .Q24H MARYSOL 9.79 mls/hr Administration Protocol 9 UNITS/KG/HR Sodium Chloride 1,000 mls @ 20 mls/hr 01/21/19 23:45 01/22/19 02:00 Saline 0.9% IV Not Given .Q24H MARYSOL Levothyroxine Sodium 100 mcg 01/22/19 06:30 01/22/19 05:06 Synthroid PO 100 mcg DAILY@0630 [facility] Administration Lidocaine 1 patch 01/22/19 09:00 Lidoderm TOPICAL DAILY PRN Pain Montelukast Sodium 10 mg 01/22/19 21:00 Singulair PO HS [facility] Nitroglycerin 1 inch 01/22/19 00:00 01/22/19 04:59 Nitro-Bid Oint TOPICAL Not Given Q6HR [facility] Nitroglycerin 0.4 mg 01/21/19 23:57 Nitrostat SUBLINGUAL Q5M PRN Chest Pain Pantoprazole Sodium 40 mg 01/21/19 23:59 Protonix PO DAILY PRN Heartburn Potassium Citrate 10 meq 01/22/19 09:00 Urocit-K PO DAILY [facility] Intake and Output 01/21/19 01/22/19 01/22/19 22:59 06:59 14:59 Other: Voiding Method Toilet # Voids 1 Weight 108.862 kg 01/21/19 22:50 01/21/19 22:50
[2019-01-22] MEDS: DULoxetine HCL 30 MG CAPSULE.DR PO SCH (10:57)
[2019-01-22] MEDS: ATENOLOL 50 MG TAB PO SCH ×2 (10:57→20:15)
[2019-01-22] MEDS: POTASSIUM CITRATE 10 MEQ TABLET.ER PO SCH (10:57)
[2019-01-22] MEDS: cloNIDine HCL 0.1 MG TAB PO SCH ×2 (10:57→20:15)
[2019-01-22] MEDS: CALCIUM CARB-VIT D 500MG-200UN 1 EACH TAB PO SCH (10:59)
--- NOTE | 2019-01-22 11:00 | P.HPIM ---
History of Present Illness H&P Date: 01/22/19 Chief Complaint: Chest pain This is a 79-year-old female one of my patient with a previous medical history significant for CAD post CABG with MORALES to LAD, SVG to D1, SVG to OM1, SVG to PLB, hypertension and hypertensive cardiovascular disease, hyperlipidemia, GERD, hypothyroidism, asthma, hiatal hernia, osteoarthritis, patient was in her usual state of health until yesterday when she went to bed around 10:00 in the evening and while she is laying down in bed she developed to have a left-sided chest pain radiating to the right shoulder, she stated that the pain lasted for about the 20-30 minutes and she did not take any nitroglycerin or aspirin at that time, she ended up coming to the ER with her and she was evaluated in the emergency department had an EKG that showed normal sinus rhythm with the lateral ST-T changes, and the patient was admitted to the hospital was started on heparin drip, cardiology consultation was obtained for evaluation patient was already seen in consultation by Dr. Bustos and she was scheduled to go for left heart catheterization for evaluation and treatment. Review of Systems Constitutional: Denies anorexia, Denies chronic headaches, Denies lethargy, Denies malaise, Denies weakness, Denies weight gain, Denies weight loss Eyes: denies blurred vision Ears: deny: ear discharge Ears, nose, mouth and throat: Denies dysphagia, Denies neck fullness/pressure, Denies neck lump, Denies swelling in throat, Denies sore throat, Denies vertigo Cardiovascular: Reports chest pain, Denies decreased exercise tolerance, Denies dyspnea on exertion, Denies lightheadedness, Denies orthopnea, Denies rapid heart beat, Denies shortness of breath, Denies syncope Respiratory: Denies congestion, Denies cough, Denies cough with sputum, Denies home oxygen, Denies respiratory infections, Denies sleep apnea, Denies snoring, Denies wheezing Gastrointestinal: Denies belching, Denies BRBPR, Denies heartburn, Denies hematemesis, Denies hematochezia, Denies indigestion, Denies melena, Denies nausea, Denies vomiting Genitourinary: Denies dysuria, Denies hematuria Menstruation: Reports postmenopausal Musculoskeletal: Denies myalgias Musculoskeletal: absent: ankle pain, ankle stiffness, ankle swelling, elbow pain , elbow stiffness, elbow swelling, foot pain, foot stiffness, foot swelling, hand pain, hand stiffness, hand swelling, hip pain, hip stiffness, hip swelling , knee pain, knee stiffness, knee swelling, shoulder pain, shoulder stiffness, shoulder swelling, wrist pain, wrist stiffness, wrist swelling Integumentary: Denies pruritus, Denies rash Neurological: Denies numbness, Denies weakness Psychiatric: Reports anxiety, Reports depression, Denies sadness/tearfulness, Denies sleep disturbances, Denies suicidal ideation Endocrine: Denies fatigue, Denies weight change Past Medical History Past Medical History: Asthma, Coronary Artery Disease (CAD), Chest Pain / Angina , GERD/Reflux, Hyperlipidemia, Hypertension, Osteoarthritis (OA), Thyroid Disorder History of Any Multi-Drug Resistant Organisms: None Reported Past Surgical History: Cholecystectomy, Coronary Bypass/CABG, Joint Replacement , Orthopedic Surgery Additional Past Surgical History / Comment(s): shoulder, quad bypass 2006, 2 left total knee arthroplasty 1 right total knee arthroplasty. Past Anesthesia/Blood Transfusion Reactions: No Reported Reaction Past Psychological History: No Psychological Hx Reported Smoking Status: Never smoker Past Alcohol Use History: None Reported Past Drug Use History: None Reported - Past Family History Mother Family Medical History: Hypertension (Mother at age of 88 from hypertension.) Father Family Medical History: Congestive Heart Failure (CHF) (Father at the age of 75 from congestive heart failure.) Brother(s) Family Medical History: Cancer (Patient had 4 brothers 2 of them from cancer 1 from throat cancer the other one from liver cancer one from motor vehicle accident and one from hepatitis.) Sister(s) Family Medical History: No Reported History (Patient has 4 sisters no major medical problems.) Medications and Allergies Home Medications Medication Instructions Recorded Confirmed Type Albuterol Sulfate [Proair Hfa] 2 puff INHALATION RT-Q6H PRN 12/18/16 01/21/19 History Aspirin EC [Ecotrin] 325 mg PO DAILY 12/18/16 01/21/19 History Atenolol 100 mg PO BID 12/18/16 01/21/19 History Atorvastatin [Lipitor] 10 mg PO HS 12/18/16 01/21/19 History Calcium Carbonate/Vitamin D3 1 tab PO DAILY 12/18/16 01/21/19 History [Calcium 500-Vit D3 600 Tablet] Furosemide [Lasix] 40 mg PO DAILY 12/18/16 01/21/19 History Lansoprazole [Prevacid] 30 mg PO DAILY 12/18/16 01/21/19 History Levothyroxine Sodium [Synthroid] 100 mcg PO DAILY 12/18/16 01/21/19 History Lidocaine 5% Patch [Lidoderm] 1 patch TOPICAL DAILY PRN 12/18/16 01/21/19 History Mometasone Furoate [Asmanex] 1 puff INHALATION RT-HS 12/18/16 01/21/19 History Montelukast [Singulair] 10 mg PO HS 12/18/16 01/21/19 History Potassium Chloride [K-Tab ER] 10 meq PO DAILY 12/18/16 01/21/19 History amLODIPine [Norvasc] 10 mg PO HS 12/18/16 01/21/19 History cloNIDine HCL [Catapres] 0.1 mg PO BID 12/18/16 01/21/19 History DULoxetine HCL [Cymbalta] 90 mg PO DAILY 01/21/19 01/21/19 History Allergies Allergy/AdvReac Type Severity Reaction Status Date / Time hydromorphone [From Dilaudid] Allergy Itching Verified 01/21/19 23:00 Penicillins Allergy Rash/Hives Verified 01/21/19 23:00 Sulfa (Sulfonamide Allergy Rash/Hives Verified 01/21/19 23:00 Antibiotics) GENIE Inhibitors AdvReac Swelling Verified 01/21/19 23:00 Physical Exam Vitals: Vital Signs Temp Pulse Pulse Resp BP BP Pulse Ox 01/22/19 10:37 98.5 F 64 18 152/73 96 01/22/19 08:00 64 18 01/22/19 07:20 98.5 F 64 18 152/73 96 01/22/19 03:29 97.6 F 61 18 103/53 98 01/22/19 01:15 64 17 01/22/19 01:08 98.1 F 67 18 136/73 96 01/22/19 00:24 17 01/22/19 00:01 77 20 110/58 100 01/21/19 23:57 100 01/21/19 22:37 98 F 75 16 142/73 100 Intake and Output 01/21/19 01/22/19 01/22/19 22:59 06:59 14:59 Other: Voiding Method Toilet Toilet # Voids 1 Weight 108.862 kg - Constitutional General appearance: no acute distress, obese - EENT Eyes: anicteric sclerae, EOMI, PERRLA, no ptosis, no scleral icterus, normal appearance ENT: hearing grossly normal, NA/AT, normal oropharynx, no thrush Ears: bilateral: normal - Neck Neck: no lymphadenopathy, normal ROM, no rigidity, no stridor, no thyromegaly Carotids: bilateral: upstroke normal Thyroid: bilateral: normal size - Respiratory Respiratory: bilateral: diminished, negative: dullness, rales, rhonchi, wheezing , prolonged expiration, prolonged inspiration - Cardiovascular Rhythm: regular Heart sounds: normal: S1, S2 Abnormal Heart Sounds: systolic murmur, no rub, no S3 Gallop, no S4 Gallop, no click - Gastrointestinal General gastrointestinal: normal bowel sounds, soft, no splenomegaly, no tenderness, no umbilical hernia, no ventral hernia - Integumentary Integumentary: normal, normal turgor - Neurologic Neurologic: CNII-XII intact - Musculoskeletal Musculoskeletal: gait normal, strength equal bilaterally - Psychiatric Psychiatric: A&O x's 3, appropriate affect, intact judgment & insight Results CBC & Chem 7: 01/21/19 22:50 01/21/19 22:50 Labs: Abnormal Lab Results - Last 24 Hours (Table) 01/21/19 01/22/19 Range/Units 22:50 05:40 APTT 38.2 H (22.0-30.0) sec BUN 23 H (7-17) mg/dL Creatinine 1.08 H (0.52-1.04) mg/dL Glucose 143 H (74-99) mg/dL Thrombosis Risk Factor Assmnt - DVT/VTE Prophylaxis DVT/VTE Prophylaxis: Pharmacologic Prophylaxis ordered, Mechanical Prophylaxis ordered - Choose All That Apply Each Factor Represents 1 point: Obesity (BMI >25) Each Risk Factor Represents 2 Points: Age 61-74 years Other congenital or acquired thrombophilia - If yes, enter type in comment: No Thrombosis Risk Factor Assessment Total Risk Factor Score: 3 Thrombosis Risk Factor Assessment Level: Moderate Risk Assessment and Plan Assessment: Assessment and plan: 1. Unstable angina. Continue heparin drip, continue aspirin 325 mg once every day, continue Lipitor 10 mg orally once every day, continue atenolol 100 mg orally twice every day, patient is scheduled for left heart catheterization, if her cath is normal she can be discharged home with follow-up as an outpatient. 2. CAD post CABG with MORALES to LAD, SVG to D1, SVG to OM1, SVG to PLB. Continue patient on aspirin 325 mg once every day, Lipitor 10 mg orally once every day, atenolol 100 mg orally twice every day. 3. Hypertension and hypertensive cardiovascular disease. Continue atenolol 100 mg orally twice every day, clonidine 0.1 mg orally twice every day. 4. Hyperlipidemia. Continue Lipitor 10 mg orally once every day. 5. GERD. Continue Prevacid 30 mg orally once every day. 6. Hiatal hernia. Patient will need to follow-up as an outpatient. 7. Hypothyroidism. Continue Synthroid 100 g orally once every day. 8. Asthma. Continue patient on Asmanex as well as albuterol as needed. 9. Depression. Continue Cymbalta 90 mg orally once every day. 10. Obesity. Diet and exercise and weight loss. 11. Observation. 12. If left heart catheter physician as normal can be discharged home with follow-up as an outpatient.
--- NOTE | 2019-01-22 11:49 | ECHOF ---
Referral Reason:cp MEASUREMENTS -------- HEIGHT: 165.1 cm WEIGHT: 108.9 kg BP: 152/73 RVIDd: 3.4 cm (< 3.3) IVSd: 1.3 cm (0.6 - 1.1) LVIDd: 4.3 cm (3.9 - 5.3) LVPWd: 1.3 cm (0.6 - 1.1) IVSs: 1.8 cm LVIDs: 2.3 cm LVPWs: 1.9 cm LAESV Index (A-L): 35.92 ml/m Ao Diam: 2.8 cm (2.0 - 3.7) AV Cusp: 1.3 cm (1.5 - 2.6) MV E Ramo: 1.39 m/s MV DecT: 172 ms MV A Ramo: 1.01 m/s MV E/A Ratio: 1.38 RAP: 5.00 mmHg RVSP: 44.56 mmHg MV EF SLOPE: 93.57 mm/s (70 - 150) MV EXCURSION: 2.13 cm (> 18.000) FINDINGS -------- Sinus rhythm. This was a technically adequate study. The left ventricular size is normal. There is mild concentric left ventricular hypertrophy. Overa ll left ventricular systolic function is normal with, an EF between 55 - 60 %. The right ventricle is mildly enlarged. LA is moderately dilated 34-39 ml/m2 The right atrial size is normal. There is mild aortic valve sclerosis. There is no evidence of aortic regurgitation. There is no e vidence of aortic stenosis. Mild mitral annular calcification present. Mild mitral regurgitation is present. The peak and me an MV gradients are 9.33mmHg 3.30mmHg as measured by doppler. Mild mitral stenosis. Moderate tricuspid regurgitation present. There is mild pulmonary hypertension. The right ventric ular systolic pressure, as measured by Doppler, is 44.56mmHg. Mild prolapse of the septal tricuspid valve leaflet. The pulmonic valve was not well visualized. Trace/mild (physiologic) pulmonic regurgitation. The aortic root size is normal. Normal inferior vena cava with normal inspiratory collapse consistent with estimated right atrial pre ssure of 5 mmHg. There is no pericardial effusion. CONCLUSIONS -------- 1. Sinus rhythm. 2. This was a technically adequate study. 3. The left ventricular size is normal. 4. There is mild concentric left ventricular hypertrophy. 5. Overall left ventricular systolic function is normal with, an EF between 55 - 60 %. 6. The right ventricle is mildly enlarged. 7. LA is moderately dilated 34-39 ml/m2 8. There is mild aortic valve sclerosis. 9. Mild mitral annular calcification present. 10. Mild mitral regurgitation is present. 11. The peak and mean MV gradients are 9.33mmHg 3.30mmHg as measured by doppler. 12. Mild mitral stenosis. 13. Moderate tricuspid regurgitation present. 14. There is mild pulmonary hypertension. 15. Mild prolapse of the septal tricuspid valve leaflet. 16. Trace/mild (physiologic) pulmonic regurgitation. 17. The aortic root size is normal. 18. There is no pericardial effusion. HOME HELP AIDE: Sam Tobar RDCS
[2019-01-22] MEDS ORDERED: fentaNYL (PF) 50 MCG/ML 2 ML AMP ONE (12:03)
[2019-01-22] MEDS ORDERED: IV FLUID CONTINUATION 1,000 ML IV ONE (12:08)
[2019-01-22] MEDS ORDERED: fentaNYL (PF) 50 MCG/ML 2 ML AMP IV ONE (12:27)
[2019-01-22] MEDS ORDERED: LIDOCAINE 1% INJ 10MG/ML (20 ML MDV) SQ ONE (12:32)
[2019-01-22] MEDS ORDERED: MIDAZOLAM 2 MG/2 ML VIAL IV ONE (12:33)
[2019-01-22] MEDS ORDERED: BIVALIRUDIN 250 MG in SODIUM CHLORIDE 0.9% 50 ML IV ONE (12:48)
[2019-01-22] MEDS ORDERED: BIVALIRUDIN BOLUS 250 MG/50 ML IV ONE (12:48)
[2019-01-22] MEDS ORDERED: CLOPIDOGREL 75 MG TAB ONE ×2 (12:49)
[2019-01-22] MEDS ORDERED: CLOPIDOGREL 75 MG TAB PO ONE (12:52)
[2019-01-22] MEDS ORDERED: NITROGLYCERIN 1000MCG/10ML SYRINGE INTRAARTER ONE (12:54)
[2019-01-22] MEDS ORDERED: IOPAMIDOL-370 150ML BTL INJ ONE ×2 (12:59)
[2019-01-22] MEDS ORDERED: RX INFO: IV CONTRAST WAS GIVEN 1 EACH MISC MISCELLANE PRN (13:18)
[2019-01-22] MEDS ORDERED: MAG HYDROX/AL HYDROX/SIMETH 30 ML CUP PO PRN (13:18)
[2019-01-22] MEDS ORDERED: ATROPINE SULFATE 0.1 MG/ML 10ML SYRINGE IV PRN (13:18)
[2019-01-22] MEDS ORDERED: ZOLPIDEM 5 MG TAB PO PRN (13:18)
[2019-01-22] MEDS ORDERED: SODIUM CHLORIDE 0.9% 1,000 ML IV SCH (13:30)
[2019-01-22] MEDS ORDERED: ACETAMINOPHEN TAB 500 MG TAB PO PRN (13:50)
--- NOTE | 2019-01-22 13:53 | CC ---
CARDIAC CATHETERIZATION REPORT Mrs. Trivedi is a 73-year-old female with a known history of coronary artery disease, status post bypass grafting in 2006, who presented with symptoms of chest discomfort and EKG changes without significant enzymatic changes. In view of that, recommendation made regarding cardiac catheterization. The procedures, risks and complication were discussed with the patient who is in full understanding and agreement. PROCEDURE: Patient was brought to [facility] in a fasting semi-sedated state after receiving fentanyl and Benadryl and achieving moderate conscious sedated state. Using Xylocaine anesthesia and Seldinger technique, a 6-Sol[place] Islander sheath was introduced in the right femoral artery. Selective right and left coronary angiography was performed using 6- [place] Islander 4 bend right and left Ludy catheter, multiple views of the right coronary artery including hemiaxial views were obtained. Following that, the 6-[place] Islander right Ludy was used to cannulate the saphenous vein graft to the OM, to the diagonal and PLV and PDA and MORALES to LAD. Images of the grafts were obtained. Following that, angioplasty and stenting was performed. Following that, a 6-[place] Islander tight pigtail catheter introduced in the left ventricle and pressures were calculated. Following that, catheter and sheath were removed. Hemostasis was obtained with deployment of an Angio-Seal. There was no immediate complication. Patient is returned to her room in stable condition. FINDINGS: FLUOROSCOPY: There was severe calcification involving all the coronary arteries. LEFT MAIN: This is short-size vessel, bifurcating into left circumflex, left anterior descending artery. Left main coronary artery has a 50% to 60% stenosis distally. LEFT ANTERIOR DESCENDING ARTERY: This vessel is totally occluded after the takeoff of a diagonal branch. The diagonal branch has diffuse intimal disease with area stenosis up to 90%. It is small in caliber. LEFT CIRCUMFLEX: This is a nondominant vessel, giving rise to a large obtuse marginal branch calcified. The left circumflex in the mid segment has an area of stenosis of 50% to 60% and there is another plaque of 60% to 70% at the ostium. The rest of the vessel has no high-grade stenosis. RIGHT CORONARY ARTERY: This vessel is totally occluded proximally with no antegrade flow. SAPHENOUS VEIN GRAFT TO THE PLV: The proximal anastomotic sites are patent. The mid segment of the body has a 99% stenosis. SAPHENOUS VEIN GRAFT TO THE OBTUSE MARGINAL BRANCH: This graft is totally occluded proximally. SAPHENOUS VEIN GRAFT TO THE PDA: The proximal distal anastomotic sites are patent. The flow into the PDA is brisk. There is no evidence of obstructive disease. SAPHENOUS VEIN GRAFT TO THE DIAGONAL BRANCH: This graft is totally occluded proximally with no antegrade flow. MORALES TO THE LAD: The distal anastomotic site is patent. The flow into the LAD is brisk. There is no evidence of high-grade stenosis. LEFT VENTRICULOGRAM: Left ventriculogram is not performed. HEMODYNAMICS: There was no gradient across the aortic valve. The ventricular end- diastolic pressure is 16-18 mmHg. CONCLUSION: 1. Severe triple-vessel coronary artery disease. 2. Patent MORALES to LAD. 3. Patent saphenous vein graft to the posterolateral branch with critical stenosis in the body of the graft. 4. Patent saphenous vein graft to the PDA. 5. Chronically occluded saphenous vein graft to the diagonal branch and to the obtuse marginal branch. RECOMMENDATION: In view of finding anatomy, I recommend proceeding with angioplasty and stenting of the saphenous vein graft to the PLV. The procedures, risks and complication were discussed with the patient who is in full understanding and agreement. MMODL / IJN: [id number] /
--- NOTE | 2019-01-22 13:59 | PTCA ---
PERCUTANEOUSTRANS CORORONARY ANGIOGRAPHY Mrs. Trivedi is a 73-year-old female who presented with symptoms of unstable angina, underwent cardiac catheterization, was found to have critical stenosis involving the body of the saphenous vein graft to the right PLV. In view of that, recommendation was made regarding angioplasty and stenting. The procedures, risks, and complication were discussed with the patient who is in full understanding and agreement. PROCEDURE: A 6-Moroccan FR4 guiding catheter introduced into the system after cannulating the ostium of the graft, the 0.014 balanced medium weight J-wire was advanced across the lesion, positioned distally, then a 2.5 x 12 mm Trek balloon was advanced and one inflation at 8 atmospheres was done. Following that, the balloon was removed and a 3.0 x 23 mm Xience Nina stent was deployed, postdilated at 16 atmospheres. After the last inflation, after appropriate wait, the balloon and the guidewire were withdrawn back in the guiding catheter. Images were obtained and repeated. Those images reveal stable successful stenting. At that point, the left ventricular end-diastolic pressure was measured using a pigtail. Following that, catheter and sheath were removed. Hemostasis was obtained with deployment of an Angio-Seal. There was no immediate complication. Patient is returned to her room in stable condition. Of note, the patient had no chest discomfort or significant EKG changes with the inflation. RESULTS: Successful stenting of the mid saphenous vein graft to the right PLV with reduction of stenosis from 99% to 0%. RECOMMENDATION: Patient be continued on aspirin, Plavix and statin. The importance of dual antiplatelet treatment were discussed with the patient her family who are in full understanding and agreement. Duration of the procedure is 37 minutes. MMODL / IJN: [id number] /
--- NOTE | 2019-01-22 14:05 | LTR ---
DATE OF SERVICE: 01/22/2019 RE: Blanca Trivedi Dear Dr. Tiwari; I had the pleasure to perform cardiac catheterization on Mrs. Trivedi at [facility] on January 22, 2019 and a full copy of the procedure note will be forwarded to you. In brief, she was found to have critical stenosis involving the body of the saphenous vein graft to the right PLV and underwent stenting of that vessel. At the same time, she was noted to have chronically occluded saphenous vein graft to the diagonal branch into and to the obtuse marginal branch. At this time, I will continue medical therapy and depending on her progress, further recommendation will be made. Thank you again for allowing me to participate in this patient's personal care. Please feel free to call for any questions. Sincerely yours, MD SPRING Ayala / VANITA: [phone] /
[2019-01-22 15:10] VITALS: BMI 39.9
[2019-01-22] MEDS: FLUTICASONE 110 MCG INHALER INHALATION SCH (20:19)
[2019-01-22] MEDS ORDERED: ATORVASTATIN 10 MG TAB PO SCH (21:00)
[2019-01-22] MEDS ORDERED: MONTELUKAST 10 MG TAB PO SCH (21:00)
[2019-01-22] MEDS ORDERED: amLODIPine 10 MG TAB PO SCH (21:00)
[2019-01-23 06:03] VITALS: RESP 18
[2019-01-23] MEDS: LEVOTHYROXINE 100 MCG TAB PO SCH (06:34)
[2019-01-23 07:19] LABS: Calcium 9.2 mg/dL (8.4-10.2); Potassium 4.8 mmol/L (3.5-5.1)
[2019-01-23 08:21] VITALS: BP 135/66; PULSE 69; TEMP 96.9
[2019-01-23] MEDS: cloNIDine HCL 0.1 MG TAB PO SCH (08:22)
[2019-01-23] MEDS: CALCIUM CARB-VIT D 500MG-200UN 1 EACH TAB PO SCH (08:22)
[2019-01-23] MEDS: POTASSIUM CITRATE 10 MEQ TABLET.ER PO SCH (08:22)
[2019-01-23] MEDS: ATENOLOL 50 MG TAB PO SCH (08:22)
[2019-01-23] MEDS: DULoxetine HCL 30 MG CAPSULE.DR PO SCH (08:23)
[2019-01-23] MEDS: FLUTICASONE 110 MCG INHALER INHALATION SCH (08:48)
[2019-01-23] MEDS ORDERED: ISOSORBIDE MONONITRATE ER 30 MG TAB.ER.24H PO SCH (09:00)
[2019-01-23] MEDS ORDERED: CLOPIDOGREL 75 MG TAB PO SCH (09:00)
[2019-01-23] MEDS ORDERED: ASPIRIN 81 MG PO SCH (09:00)
--- NOTE | 2019-01-23 11:06 | P.DS ---
Providers Date of admission: 01/22/19 00:00 Expected date of discharge: 01/23/19 Attending physician: Rafi Tiwari Consults: 01/21/19 23:57 Consult Physician Urgent Consulting Provider: Tammy Bustos Consult Reason/Comments: Chest pain Do you want consulting provider notified?: Yes, Notify in am 01/22/19 13:18 Consult Physician Routine Consulting Provider: [facility] Consult Reason/Comments: Post Interventional patient Do you want consulting provider notified?: Already Contacted Primary care physician: Rafi Tiwari Hospital Course: This is a 79-year-old female one of my patient with a previous medical history significant for CAD post CABG with MORALES to LAD, SVG to D1, SVG to OM1, SVG to PLB, hypertension and hypertensive cardiovascular disease, hyperlipidemia, GERD, hypothyroidism, asthma, hiatal hernia, osteoarthritis, patient was in her usual state of health until yesterday when she went to bed around 10:00 in the evening and while she is laying down in bed she developed to have a left-sided chest pain radiating to the right shoulder, she stated that the pain lasted for about the 20-30 minutes and she did not take any nitroglycerin or aspirin at that time, she ended up coming to the ER with her and she was evaluated in the emergency department had an EKG that showed normal sinus rhythm with the lateral ST-T changes, and the patient was admitted to the hospital was started on heparin drip, cardiology consultation was obtained for evaluation patient was already seen in consultation by Dr. Bustos and she was scheduled to go for left heart catheterization for evaluation and treatment. 01/23: Yesterday, patient underwent a heart catheterization with Dr. Bustos the following severe triple-vessel coronary artery disease, patent MORALES to LAD, patent saphenous vein graft to the posterior lateral branch with critical stenosis in the body of the graft, patent saphenous vein graft to the PDA, chronically occluded saphenous vein graft to the diagonal branch and to the obtuse marginal branch. She then underwent successful stenting of the mid saphenous vein graft to the right PLB with reduction of stenosis from 99-100%. She has been started on Plavix and Imdur were, baby aspirin, Nitrostat. Patient denies having any chest pain or shortness of breath, no lightheadedness or dizziness. She is anxious to be discharged home. She does relate that she had episode of difficulty swallowing and was unable to get her food down ended up vomiting. She was able to swallow her pills. She denies any epigastric pain or tenderness. She states she has had this happen in the past. She is known to have a modified fixed hiatal hernia which is most likely culprit. She denies any difficulty swallowing at this time. Patient will be discharged home today in stable condition once cleared by Dr. Bustos. Discharge diagnoses: 1. Unstable angina secondary to coronary artery disease 2. CAD post CABG with MORALES to LAD, SVG to D1, SVG to OM1, SVG to PLB. 3. Hypertension and hypertensive cardiovascular disease. 4. Hyperlipidemia. 5. GERD. 6. Hiatal hernia. 7. Hypothyroidism. 8. Asthma, mild intermittent. 9. Depression, recurrent. 10. Obesity. Discharge plan: Home Impression and plan of care have been directed as dictated by the signing physician. Bambi Ramos nurse practitioner acting as scribe for signing physician. Patient Condition at Discharge: Good Plan - Discharge Summary Discharge Rx Participant: Yes New Discharge Prescriptions: New Aspirin 81 mg PO DAILY chew Clopidogrel [Plavix] 75 mg PO DAILY #30 tab Isosorbide Mononitrate ER [Imdur] 30 mg PO DAILY #30 tab.er.24h Nitroglycerin Sl Tabs [Nitrostat] 0.4 mg SUBLINGUAL Q5M PRN #25 tab PRN Reason: Chest Pain Continue Lidocaine 5% Patch [Lidoderm 5% Patch] 1 patch TOPICAL DAILY PRN PRN Reason: Pain Calcium Carbonate/Vitamin D3 [Calcium 500-Vit D3 600 Tablet] 1 tab PO DAILY Albuterol Sulfate [Proair Hfa] 2 puff INHALATION RT-Q6H PRN PRN Reason: Shortness Of Breath cloNIDine HCL [Catapres] 0.1 mg PO BID amLODIPine [Norvasc] 10 mg PO HS Montelukast [Singulair] 10 mg PO HS Mometasone Furoate [Asmanex] 1 puff INHALATION RT-HS Atorvastatin [Lipitor] 10 mg PO HS Potassium Chloride [K-Tab ER] 10 meq PO DAILY Levothyroxine Sodium [Synthroid] 100 mcg PO DAILY Lansoprazole [Prevacid] 30 mg PO DAILY Furosemide [Lasix] 40 mg PO DAILY Atenolol 100 mg PO BID DULoxetine HCL [Cymbalta] 90 mg PO DAILY Discontinued Aspirin EC [Ecotrin] 325 mg PO DAILY Discharge Medication List Albuterol Sulfate [Proair Hfa] 2 puff INHALATION RT-Q6H PRN 12/18/16 [History] Atenolol 100 mg PO BID 12/18/16 [History] Atorvastatin [Lipitor] 10 mg PO HS 12/18/16 [History] Calcium Carbonate/Vitamin D3 [Calcium 500-Vit D3 600 Tablet] 1 tab PO DAILY [History] Furosemide [Lasix] 40 mg PO DAILY 12/18/16 [History] Lansoprazole [Prevacid] 30 mg PO DAILY 12/18/16 [History] Levothyroxine Sodium [Synthroid] 100 mcg PO DAILY 12/18/16 [History] Lidocaine 5% Patch [Lidoderm 5% Patch] 1 patch TOPICAL DAILY PRN 12/18/16 [ History] Mometasone Furoate [Asmanex] 1 puff INHALATION RT-HS 12/18/16 [History] Montelukast [Singulair] 10 mg PO HS 12/18/16 [History] Potassium Chloride [K-Tab ER] 10 meq PO DAILY 12/18/16 [History] amLODIPine [Norvasc] 10 mg PO HS 12/18/16 [History] cloNIDine HCL [Catapres] 0.1 mg PO BID 12/18/16 [History] DULoxetine HCL [Cymbalta] 90 mg PO DAILY 01/21/19 [History] Aspirin 81 mg PO DAILY chew 01/23/19 [Rx] Clopidogrel [Plavix] 75 mg PO DAILY #30 tab 01/23/19 [Rx] Isosorbide Mononitrate ER [Imdur] 30 mg PO DAILY #30 tab.er.24h 01/23/19 [Rx] Nitroglycerin Sl Tabs [Nitrostat] 0.4 mg SUBLINGUAL Q5M PRN #25 tab 01/23/19 [Rx ] Follow up Appointment(s)/Referral(s): Asuncion Roblero NPC [Nurse Practitioner] - 01/30/19 10:30 am (Tuesday) Rafi Tiwari MD [Primary Care Provider] - 01/29/19 11:00 am (tuesday) Patient Instructions/Handouts: *[facility] - After Heart Catheterization - Cardboard Cutter Instructions, Left Heart Catheterization (DC)
--- NOTE | 2019-01-23 11:26 | PN ---
PROGRESS NOTE Mrs. Trivedi is a 73-year-old female with known history of coronary artery disease, status post coronary artery bypass grafting, who presented with symptoms of chest pain and EKG changes, underwent cardiac catheterization and was found to have critical stenosis in the saphenous vein graft to the PLV and underwent stenting of that vessel. She is doing well this morning. Her breathing is stable. She is ambulating without any difficulty. She continues to be on aspirin once a day, Plavix 75 mg daily, amlodipine 10 mg daily, atenolol 100 mg twice a day, Lipitor 40 mg daily, clonidine 0.1 mg twice a day, isosorbide mononitrate 30 mg daily, Singulair 10 mg daily. PHYSICAL EXAMINATION: Blood pressure 135/60 with the heart rate in the 60s. LUNGS: Clear. HEART: Regular rate and rhythm. S1, S2. No S3 with systolic murmur. No diastolic murmur. ABDOMEN: Soft, nontender. EXTREMITIES: No edema. LAB DATA: Labs data revealed a BUN and creatinine of 11 and 0.9. Potassium of 4.8. IMPRESSION: 1. Status post stenting of the saphenous vein graft to the PLV. 2. Status post coronary artery bypass grafting. 3. Hypertension. 4. Hyperlipidemia. RECOMMENDATION: Patient should be able to be discharged home today and followed as an outpatient. Those findings and recommendation were discussed with the patient who is in full understanding and agreement. SPRING / VANITA: [phone] /
[2019-01-23] MEDS ORDERED: ATORVASTATIN 40 MG TAB PO SCH (21:00)
== END 2019-01-23 11:30 | disposition home or self-care (01) | DRG 247 ==
LOC: EC 22:36 → 1SOBS 01-22 → 3SCARD 01-22 13:05 → OBSVTOIN 01-23 08:51
PROVIDERS: ADMIT Internal Medicine; ATTEND Internal Medicine
PROC: B2131ZZ Fluoroscopy of Multiple Coronary Artery Bypass Grafts using Low Osmolar Contrast (ICD-10-PCS; 2019-01-22)
PROC: B2111ZZ Fluoroscopy of Multiple Coronary Arteries using Low Osmolar Contrast (ICD-10-PCS; 2019-01-22)
PROC: 027034Z Dilation of Coronary Artery, One Artery with Drug-eluting Intraluminal Device, Percutaneous Approach (ICD-10-PCS; principal; 2019-01-22 11:50)
PROC: 4A023N7 Measurement of Cardiac Sampling and Pressure, Left Heart, Percutaneous Approach (ICD-10-PCS; 2019-01-22 11:50)
DX: I25.710 Atherosclerosis of autologous vein coronary artery bypass graft(s) with unstable angina pectoris (principal); Z68.41 Body mass index [BMI] 40.0-44.9, adult; I27.20 Pulmonary hypertension, unspecified; I25.82 Chronic total occlusion of coronary artery; R13.10 Dysphagia, unspecified; I08.3 Combined rheumatic disorders of mitral, aortic and tricuspid valves; I11.9 Hypertensive heart disease without heart failure; I25.10 Atherosclerotic heart disease of native coronary artery without angina pectoris; K21.9 Gastro-esophageal reflux disease without esophagitis; J45.20 Mild intermittent asthma, uncomplicated; E78.5 Hyperlipidemia, unspecified; M19.90 Unspecified osteoarthritis, unspecified site; R63.4 Abnormal weight loss; K44.9 Diaphragmatic hernia without obstruction or gangrene; E03.9 Hypothyroidism, unspecified; F32.9 Major depressive disorder, single episode, unspecified; E66.9 Obesity, unspecified; Z71.3 Dietary counseling and surveillance; Z79.82 Long term (current) use of aspirin; Z79.899 Other long term (current) drug therapy; Z79.890 Hormone replacement therapy; Z96.653 Presence of artificial knee joint, bilateral; Z88.0 Allergy status to penicillin; Z88.2 Allergy status to sulfonamides; Z88.8 Allergy status to other drugs, medicaments and biological substances; Z80.8 Family history of malignant neoplasm of other organs or systems; Z82.49 Family history of ischemic heart disease and other diseases of the circulatory system; Z80.0 Family history of malignant neoplasm of digestive organs
CPT/HCPCS: 36415; 71046; 80048; 80053; 80061; 83735; 83880; 84484; 85025; 85347; 85610; 85730; 93005; 93306; 93459; 94640; 96365; 96376; 99291; C1874

== ENCOUNTER → 2019-11-03 | Outpatient (CLI) | payer MEDICARE ==
[2019-11-03 09:48] LABS: Basophils # (A) 0.1 k/uL (0-0.2); Basophils % (A) 1 %; Eosinophils # (A) 0.2 k/uL (0-0.7); Eosinophils % (A) 3 %; HCT 45.3 % (34.0-46.0); HGB 14.4 gm/dL (11.4-16.0); Hypochromasia Slight; Lymphocytes # (A) 1.4 k/uL (1.0-4.8); Lymphocytes % (A) 23 %; MCHC 31.9 g/dL (31.0-37.0); Mean Platelet Volume 9.8; Monocytes # (A) 0.4 k/uL (0-1.0); Monocytes % (A) 6 %; Neutrophils # (A) 4.1 k/uL (1.3-7.7); Neutrophils % (A) 65 %; Platelet Count 256 k/uL (150-450); RBC 5.15 m/uL (3.80-5.40); WBC 6.3 k/uL (3.8-10.6)
[2019-11-03 17:37] LABS: African American GFR (CKD) 57.7 (60.0-200.0); Albumin 4.6 g/dL (3.80-4.90); Anion Gap 9.3 mmol/L (4.00-12.00); BUN/Creat Ratio 14.55 Ratio (12.00-20.00); Calcium 10.3 mg/dL (8.7-10.3); Carbon Dioxide 29.7 mmol/L (21.6-31.8); Chol/HDL Ratio 2.71; Globulin 2.3 g/dL (1.6-3.3); LDL Cholesterol,Calculated 55.2 mg/dL (0.0-131.0); Magnesium 2.1 mg/dL (1.5-2.4); Non-African American GFR(CKD) 49.8 (60.0-200.0); Potassium 4.9 mmol/L (3.5-5.5); Total Bilirubin 0.7 mg/dL (0.3-1.2); Total Protein 6.9 g/dL (6.2-8.2); Uric Acid 6.1 mg/dL (2.9-7.7); VLDL Calculation 28.8 mg/dL (5.00-40.00)
[2019-11-03 17:45] LABS: T4, Free (Free Thyroxine) 0.9 ng/dL (0.80-1.80)
[2019-11-03 18:31] LABS: Hemoglobin A1C 5.9 % (4.0-6.0)
== END | disposition home or self-care (01) ==
LOC: LABWHC1 09:00
PROVIDERS: ATTEND Internal Medicine
DX: I10 Essential (primary) hypertension (principal); E78.2 Mixed hyperlipidemia; R73.03 Prediabetes
CPT/HCPCS: 36415; 80053; 80061; 82550; 83036; 83735; 84439; 84443; 84550; 85025

== ENCOUNTER → 2021-12-22 | Outpatient (CLI) | payer MEDICARE ==
--- NOTE | 2021-12-23 12:13 | MM ---
Reason for exam: screening (asymptomatic). Last mammogram was performed 6 years and 2 months ago. History: Patient is postmenopausal and is nulliparous. Took hormonal contraceptives for 5 years beginning at age 26. Took estrogen for 6 months beginning at age 45. Taking other hormone for 15 years beginning at age 47. Physical Findings: A clinical breast exam by your physician is recommended on an annual basis and results should be correlated with mammographic findings. MG 3D Screening Mammo W/Cad Bilateral CC and MLO view(s) were taken. Prior study comparison: November 04, 2015, bilateral MG 3d diag mammo w/cad CHANEL. There are scattered fibroglandular densities. No significant changes when compared with prior studies. ASSESSMENT: Negative, BI-RAD 1 RECOMMENDATION: Routine screening mammogram of both breasts in 1 year.
== END | disposition home or self-care (01) ==
LOC: RADMAMWWP 13:56
PROVIDERS: ATTEND Internal Medicine
DX: Z12.31 Encounter for screening mammogram for malignant neoplasm of breast (principal); M81.0 Age-related osteoporosis without current pathological fracture
CPT/HCPCS: 77063; 77067

== ENCOUNTER → 2022-01-07 | Outpatient (CLI) | payer MEDICARE ==
--- NOTE | 2022-01-07 16:48 | BD ---
EXAMINATION TYPE: Axial Bone Density DATE OF EXAM: 01/07/2022 COMPARISON: 2014 CLINICAL HISTORY: Postmenopausal screening Height: 64 Weight: 223.9 FRAX RISK QUESTIONS: Alcohol (3 or more units per day): no Family History (Parent hip fracture): no Glucocorticoids (More than 3mos): no (Ex: prednisone, prednisolone, methylprednisolone, dexamethasone, and hydrocortisone). History of Fracture in Adulthood: yes Secondary Osteoporosis: 1. Type 1 Diabetes: no 2. Hyperthyroidism: no 3. Menopause before 45: no 4. Malnutrition: no 5. Chronic liver disease: no Rheumatoid Arthritis: no Current Tobacco Use: no RISK FACTORS HISTORY OF: History of Wrist Fracture: left wrist When: 5years ago Surgery to Spine/Hip(right/left)/Wrist (right/left): no Family History of Osteoporosis: yes Active: no Diet low in dairy products/other sources of calcium: yes Postmenopausal woman: yes Lost more than 2 inches in height since high school: yes MEDICATIONS: heart meds Thyroid Medications: levothyroxine How Lon years Additional History: EXAM MEASUREMENTS: Bone mineral densitometry was performed using the [employer] System. Bone mineral density as measured about the Lumbar spine is: ----- L1-L4(G/cm2): 1.537 T Score Values are as follows: ----- L2: 2.4 ----- L3: 3.0 ----- L4: 4.3 ----- L1-L4: 3.0 Bone mineral density has: increased 7.8 % since study of: 11.04.2015 Bone mineral density about the R hip (g/cm2): 0.821 Bone mineral density about the L hip (g/cm2): 0.877 T Score values are as follows: -----R Neck: -1.6 -----L Neck: -1.2 -----R Total: -0.5 -----L Total: -1.0 Bone mineral density has: decreased -1.4 % since study of: 11.04.2015 IMPRESSION: Osteopenia (T Score between -2.5 and -1). There is slightly increased risk of fracture and the patient may be considered for treatment. Re-Screen 2-5 years. NOTE: T-SCORE=SD OF THE YOUNG ADULT MEAN.
== END | disposition home or self-care (01) ==
LOC: RADBDWWP 12:21
PROVIDERS: ATTEND Internal Medicine
DX: M85.80 Other specified disorders of bone density and structure, unspecified site (principal)
CPT/HCPCS: 77080

== ENCOUNTER 2022-03-30 15:31 | Emergency (ER) | payer MEDICARE ==
[2022-03-30 15:53] VITALS: BP 142/78; PULSE 78; RESP 14; TEMP 98.9
--- NOTE | 2022-03-30 16:40 | CT ---
EXAMINATION TYPE: CT brain winsome wo con DATE OF EXAM: 03/30/2022 COMPARISON: None available HISTORY: fall CT DLP: 1603.8 mGycm Automated exposure control for dose reduction was used. TECHNIQUE: CT scan of the head and cervical spine are performed without contrast. FINDINGS: Brain: Right superior frontal gyrus and right posterior cerebellar areas of encephalomalacia likely represen ting sequela of previous trauma or infarcts. Bilateral cerebral white matter hypodensities likely rep resenting chronic microvascular ischemic changes. Brain volume loss changes. Scattered arterial ather osclerotic calcifications. Partial empty sella. No acute intracranial hemorrhage or gross acute corti candy infarct. No midline shift or herniation. Unremarkable basal cisterns and CP angles. No gross space-occupying l esion, vasogenic edema or mass effect. Grossly unremarkable orbits. Mild mucosal thickening of the le ft maxillary sinus. Clear mastoid air cells. Degenerative changes of the TMJs. No definite acute calv arial bone fracture identified. Cervical spine: Anterolisthesis of C2 over C3 with retrolisthesis of C3 over C4 and C4 over C5, likely degenerative. Osteopenia. No definite vertebral body collapse or acute displaced fracture. Unremarkable atlantoaxia l and atlantooccipital articulations. Degenerative changes of the cervical spine with multilevel opposing endplate osteophytosis, degenerat ed discs and uncovertebral osteoarthropathy, most evident at C3-4, C4-5, C5-6, C6-7 and T1-2 levels. Multilevel facet facet is also noted. Left C2-3, bilateral C3-4, right C5-6 and right C6-7 neuroforaminal stenosis. Multilevel spinal canal stenosis is also noted. Scattered arterial atherosclerotic calcifications. Sternotomy wire sutures. Small thyroid gland. IMPRESSION: No acute intracranial posttraumatic sequela or acute calvarial bone fracture. Chronic and incidental findings as detailed above. No evidence of acute traumatic bony injury of the cervical spine. Degenerative changes of the cervica l spine and other incidental findings as described above.
--- NOTE | 2022-03-30 16:45 | XR ---
EXAMINATION TYPE: XR knee complete RT DATE OF EXAM: 03/30/2022 COMPARISON: 06/29/2017 HISTORY: Pain TECHNIQUE: 3 views FINDINGS: There is right knee prosthesis. Components appear in anatomic position. No fracture seen. T here is vascular calcification. IMPRESSION: No acute abnormality of the right knee. No change.
[2022-03-30] MEDS ORDERED: DIPH,PERTUS(ACELL)TETVAC-LF 0.5 ML VIAL IM ONE (17:13)
[2022-03-30] MEDS ORDERED: LIDOCAINE 1% INJ 10MG/ML (5 ML VIAL-PF) SQ ONE (17:13)
--- NOTE | 2022-03-30 17:37 | ED ---
General Adult HPI - General Chief complaint: Fall Stated complaint: Fall-Facial lac. Time Seen by Provider: 03/30/22 15:50 Source: patient Mode of arrival: wheelchair Limitations: no limitations - History of Present Illness Initial comments: 76-year-old female presents to the emergency department after she fell. She was reportedly walking into the bank when she missed a step and fell into a window. She hit her head and fell, twisting her right knee. Patient had a laceration noted above the right eye. She takes baby aspirin. No other blood thinners. She denies any loss of consciousness. No headaches or visual changes. No nausea vomiting. Patient has been acting appropriately since the injury 30 minutes prior to hospital arrival. She has been able to ambulate on the right knee area does have history of previous right knee replacement. Denies any neck or back pain. No other alleviating, precipitating or modifying factors - Related Data Home Medications Medication Instructions Recorded Confirmed Albuterol Sulfate [Proair Hfa] 2 puff INHALATION RT-Q6H PRN 12/18/16 01/21/19 Atorvastatin [Lipitor] 10 mg PO HS 12/18/16 01/21/19 Calcium Carbonate/Vitamin D3 1 tab PO DAILY 12/18/16 01/21/19 [Calcium 500-Vit D3 15 Mcg (600 Iu)] Furosemide [Lasix] 40 mg PO DAILY 12/18/16 01/21/19 Lansoprazole [Prevacid] 30 mg PO DAILY 12/18/16 01/21/19 Levothyroxine Sodium [Synthroid] 100 mcg PO DAILY 12/18/16 01/21/19 Lidocaine 5% Patch [Lidoderm 5% 1 patch TOPICAL DAILY PRN 12/18/16 01/21/19 Patch] Mometasone Furoate [Asmanex 1 puff INHALATION RT-HS 12/18/16 01/21/19 Inhaler] Montelukast [Singulair] 10 mg PO HS 12/18/16 01/21/19 Potassium Chloride [K-Tab ER] 10 meq PO DAILY 12/18/16 01/21/19 amLODIPine [Norvasc] 10 mg PO HS 12/18/16 01/21/19 atenoloL 100 mg PO BID 12/18/16 01/21/19 cloNIDine HCL [Catapres] 0.1 mg PO BID 12/18/16 01/21/19 DULoxetine HCL [Cymbalta] 90 mg PO DAILY 01/21/19 01/21/19 Previous Rx's Medication Instructions Recorded Aspirin 81 mg PO DAILY chew 01/23/19 Clopidogrel [Plavix] 75 mg PO DAILY #30 tab 01/23/19 Isosorbide Mononitrate ER [Imdur] 30 mg PO DAILY #30 tab.er.24h 01/23/19 Nitroglycerin Sl Tabs [Nitrostat] 0.4 mg SUBLINGUAL Q5M PRN #25 tab 01/23/19 Allergies Allergy/AdvReac Type Severity Reaction Status Date / Time hydromorphone [From Dilaudid] Allergy Itching Verified 03/30/22 15:53 Penicillins Allergy Rash/Hives Verified 03/30/22 15:53 Sulfa (Sulfonamide Allergy Rash/Hives Verified 03/30/22 15:53 Antibiotics) GENIE Inhibitors AdvReac Swelling Verified 03/30/22 15:53 Review of Systems ROS Statement: Those systems with pertinent positive or pertinent negative responses have been documented in the HPI. ROS Other: All systems not noted in ROS Statement are negative. Past Medical History Past Medical History: Asthma, Coronary Artery Disease (CAD), Chest Pain / Angina, GERD/Reflux, Hyperlipidemia, Hypertension, Osteoarthritis (OA), Thyroid Disorder History of Any Multi-Drug Resistant Organisms: None Reported Past Surgical History: Cholecystectomy, Coronary Bypass/CABG, Joint Replacement, Orthopedic Surgery Additional Past Surgical History / Comment(s): shoulder, quad bypass 2006, 2 left total knee arthroplasty 1 right total knee arthroplasty. Past Anesthesia/Blood Transfusion Reactions: No Reported Reaction Past Psychological History: No Psychological Hx Reported Smoking Status: Never smoker Past Alcohol Use History: None Reported Past Drug Use History: None Reported - Past Family History Mother Family Medical History: Hypertension (Mother at age of 88 from hypertension.) Father Family Medical History: Congestive Heart Failure (CHF) (Father at the age of 75 from congestive heart failure.) Brother(s) Family Medical History: Cancer (Patient had 4 brothers 2 of them from cancer 1 from throat cancer the other one from liver cancer one from motor vehicle accident and one from hepatitis.) Sister(s) Family Medical History: No Reported History (Patient has 4 sisters no major medical problems.) General Exam Limitations: no limitations General appearance: alert, in no apparent distress Head exam: Present: normocephalic, other (laceration over right eyebrow measuring 2.5 x 0.5 cm. no underlying bony fracture. no foreign bodies. no acti vely bleeding) Eye exam: Present: normal appearance, PERRL, EOMI. Absent: scleral icterus, conjunctival injection, periorbital swelling ENT exam: Present: normal exam, mucous membranes moist Neck exam: Present: normal inspection. Absent: tenderness, meningismus, lymphadenopathy Respiratory exam: Present: normal lung sounds bilaterally. Absent: respiratory distress, wheezes, rales, rhonchi, stridor Cardiovascular Exam: Present: regular rate, normal rhythm, normal heart sounds. Absent: systolic murmur, diastolic murmur, rubs, gallop, clicks GI/Abdominal exam: Present: soft, normal bowel sounds. Absent: distended, tenderness, guarding, rebound, rigid Extremities exam: Present: normal inspection, full ROM, normal capillary refill. Absent: tenderness, pedal edema, joint swelling, calf tenderness Back exam: Present: normal inspection Neurological exam: Present: alert, oriented X3, CN II-XII intact Psychiatric exam: Present: normal affect, normal mood Skin exam: Present: warm, dry, intact, normal color. Absent: rash Course Vital Signs 03/30/22 15:50 Temperature 98.9 F Pulse Rate 78 Respiratory 14 Rate Blood Pressure 142/78 O2 Sat by Pulse 99 Oximetry Procedures - Laceration Laceration #1 Consent Obtained: verbal consent Indication: laceration Site: face Size (cm): 3 Description: linear Depth: simple, single layer Anesthetic Used: lidocaine 1% Anesthesia Technique: local infiltration Amount (mls): 5 Pre-repair: wound explored, irrigated extensively, deep structures intact Type of Sutures: nylon Size of Sutures: 5-0 Number of Sutures: 4 Technique: simple, interrupted Patient Tolerated Procedure: well (96), no complications Medical Decision Making - Medical Decision Making Upon arrival patient is taken for CT of her head and cervical spine. X-ray is also performed of the right knee. CT of the brain demonstrates no acute intracranial posttraumatic sequela or acute fracture. X-ray of the right knee demonstrates intact hardware. Patient's right forehead laceration is repaired using 4 nylon sutures. She is instructed that these must be taken out in 5-7 days. Follow-up with her primary care doctor for suture removal. Return to the emergency room for any new or worsening symptoms. Patient agreed with treatment plan and she is discharged home in stable condition Disposition Clinical Impression: Fall, Facial laceration, Right knee pain Disposition: HOME SELF-CARE Condition: Stable Instructions (If sedation given, give patient instructions): Diphtheria/Pertussis/Tetanus Vaccine (By injection), Facial Laceration (ED) Additional Instructions: You need your stitches removed in 5-7 days. Please follow-up with your primary care doctor for further evaluation. Return for any new or worsening symptoms Is patient prescribed a controlled substance at d/c from ED?: No Referrals: Rafi Tiwari MD [Primary Care Provider] - 1-2 days Time of Disposition: 17:37
== END 2022-03-30 17:43 | disposition home or self-care (01) ==
LOC: EC 15:31
DX: S01.111A Laceration without foreign body of right eyelid and periocular area, initial encounter (principal); M25.561 Pain in right knee; E78.5 Hyperlipidemia, unspecified; I10 Essential (primary) hypertension; I25.10 Atherosclerotic heart disease of native coronary artery without angina pectoris; J45.909 Unspecified asthma, uncomplicated; K21.9 Gastro-esophageal reflux disease without esophagitis; E07.9 Disorder of thyroid, unspecified; Z79.02 Long term (current) use of antithrombotics/antiplatelets; Z79.51 Long term (current) use of inhaled steroids; Z79.82 Long term (current) use of aspirin; Z88.0 Allergy status to penicillin; Z88.2 Allergy status to sulfonamides; Z88.5 Allergy status to narcotic agent; Z23 Encounter for immunization; Z95.1 Presence of aortocoronary bypass graft; Z96.653 Presence of artificial knee joint, bilateral; Z79.899 Other long term (current) drug therapy; Z88.8 Allergy status to other drugs, medicaments and biological substances; Z79.890 Hormone replacement therapy; W10.9XXA Fall (on) (from) unspecified stairs and steps, initial encounter; Y93.01 Activity, walking, marching and hiking
CPT/HCPCS: 73562; 72125; 70450; 90715; 99284; 90471; 12013; J2001

== ENCOUNTER → 2022-08-26 | Outpatient (CLI) | payer MEDICARE ==
--- NOTE | 2022-08-26 11:29 | XR ---
EXAMINATION TYPE: XR foot complete LT DATE OF EXAM: 08/26/2022 COMPARISON: NONE HISTORY: Pain TECHNIQUE: Three views are submitted. FINDINGS: The osseous structures are intact. There is no acute fracture or dislocation. Diffuse osteopenia w ith the arthropathy of the tarsometatarsal joint. Surgical change along the medial margin of the dist al tibia. Calcaneal spurs are seen and there are soft tissue calcifications. Soft tissue fullness frank r the head of the fifth metatarsal. IMPRESSION: 1. 1. Soft tissue fullness near the head of the fifth metatarsal with no definite acute fracture or dest ructive change. Consider soft tissue nodule or mass versus cellulitis. Correlate to exclude gout.
== END | disposition home or self-care (01) ==
LOC: RADXRMAIN 11:13
PROVIDERS: ATTEND Internal Medicine
DX: M77.50 Other enthesopathy of unspecified foot and ankle (principal)

== ENCOUNTER 2023-03-17 08:24 | Inpatient (IN) | payer MEDICARE ==
[2023-03-17] MEDS ORDERED: HEPARIN SODIUM 1,000 UN/ML (10ML VL) ONE (08:36)
[2023-03-17] MEDS ORDERED: fentaNYL (PF) 50 MCG/ML 2 ML AMP ONE (08:36)
[2023-03-17] MEDS ORDERED: VERAPAMIL 2.5 MG/ML 2 ML AMP ONE (08:36)
[2023-03-17] MEDS ORDERED: LIDOCAINE 1% INJ 10MG/ML (5 ML VIAL-PF) SQ ONE ×2 (08:41→08:42)
[2023-03-17] MEDS: MIDAZOLAM 2 MG/2 ML VIAL IV ONE ×3 (08:42→09:02)
[2023-03-17] MEDS: fentaNYL (PF) 50 MCG/ML 2 ML AMP IV ONE ×2 (08:43→09:24)
[2023-03-17] MEDS ORDERED: VERAPAMIL SYRINGE (5 MG/10 ML) INTRAARTER ONE (08:46)
[2023-03-17] MEDS: HEPARIN SODIUM 1,000 UN/ML (10ML VL) IV ONE ×2 (08:52→09:44)
[2023-03-17] MEDS ORDERED: SODIUM CHLORIDE 0.9% 1,000 ML IV ONE (08:52)
[2023-03-17] MEDS ORDERED: LIDOCAINE 1% INJ 10MG/ML (20 ML MDV) ONE (09:03)
[2023-03-17] MEDS ORDERED: IOPAMIDOL-370 100ML BTL INJ ONE ×3 (09:18→10:17)
[2023-03-17] MEDS ORDERED: MIDAZOLAM 2 MG/2 ML VIAL IV ONE (09:41)
[2023-03-17] MEDS ORDERED: TIROFIBAN 12.5MG-250ML NS 250 ML IV ONE (09:45)
[2023-03-17] MEDS ORDERED: CLOPIDOGREL 75 MG TAB ONE (10:29)
[2023-03-17] MEDS ORDERED: CLOPIDOGREL 75 MG TAB PO ONE (10:31)
[2023-03-17] MEDS ORDERED: ALBUTEROL HFA INHALER INHALATION PRN (10:54)
[2023-03-17] MEDS ORDERED: ZOLPIDEM 5 MG TAB PO PRN (10:56)
[2023-03-17] MEDS ORDERED: NITROGLYCERIN SL TABS 0.4 MG TAB SUBLINGUAL PRN (10:56)
[2023-03-17] MEDS ORDERED: RX INFO: IV CONTRAST WAS GIVEN 1 EACH MISC MISCELLANE PRN (10:56)
[2023-03-17] MEDS ORDERED: MAG HYDROX/AL HYDROX/SIMETH 30 ML CUP PO PRN (10:56)
[2023-03-17] MEDS ORDERED: ATROPINE SULFATE 0.1 MG/ML 10ML SYRINGE IV PRN (10:56)
[2023-03-17] MEDS: TIROFIBAN 12.5MG-250ML NS 250 ML IV SCH ×2 (11:00→18:45)
[2023-03-17] MEDS ORDERED: SODIUM CHLORIDE 0.9% 1,000 ML in EMPTY BAG 1 BAG IV SCH (11:00)
[2023-03-17 11:05] LABS: Glucose,Whole Blood 121 mg/dL (70-110)
[2023-03-17] MEDS: ACETAMINOPHEN TAB 325 MG TAB PO PRN (14:50)
--- NOTE | 2023-03-17 17:19 | P.PRCINT ---
Percutaneous Coronary Int. - Percutaneous Coronary Intervention Percutaneous Coronary Intervention: PROCEDURES PERFORMED: Bilateral coronary angiography, SVG to PDA, SVG to PLV, MORALES to LAD angiography, Penumbra aspiration thrombectomy, PCI proximal and mid SVG to PDA with 3.0 x 28mm Xience ELISABETH x 2 INDICATION: STEMI CONSENT:I have discussed the risks, benefits and alternative therapies for the above-mentioned procedure and for both sedation/analgesia as well as necessary blood product administration, if indicated, as they pertain to this patient. The patient has indicated understanding and acceptance of the risks and procedures discussed. PROCEDURE: After the risks, benefits and alternatives of the above mentioned procedure explained in detail with the patient, informed consent was obtained. Patient was taken to the catheterization lab and prepped and draped in usual fashion. 1% lidocaine was used to anesthetize the left radial artery. A 6- Fijian sheath was placed in the left radial artery using modified Seldinger technique. SVG to PLV angiography was performed with a 6-Fijian multipurpose catheter and noted to be occluded which was a change from prior. There appeared to be a blunt stump proximally and briefly attempted to wire lesion however wire not passing smoothly and felt to be more chronic lesion. Therefore consideration of possible disease from the left coronary artery causing decreased flow to collaterals to the right causing the inferior ST elevations. Multiple attempts at cannulating the left main with ethyl 4, see last 3.5, FL 3.5 catheters however unsuccessful. Therefore decision was made to change to femoral approach. A 6-Fijian sheath was placed in the right femoral artery using modified Seldinger technique. There was still some difficulty engaging the left main and therefore subselective images were obtained with the CLS 3.5 guide. Patient was noted to have additional right graft to the PDA and therefore additional images were obtained with the 6-Fijian multipurpose catheter for the SVG to PDA. The decision was made to perform PCI of the SVG to PDA. The graft was wired using a 0.014 BMW wire however not easily wired. Balloon angioplasty was performed initially with a 2.5 x 12 mm balloon. A 0.014 whisper wire was able to be advanced more distally. Further angioplasty with was performed with a 3.0 x 20 mm balloon. After angioplasty there was antegrade flow with diffuse thrombus noted. Therefore Aggrastat was initiated. Additionally a Spider distal embolic filter was advanced and deployed in the distal SVG. Next Penumbra aspiration thrombectomy was performed with 3 passes. There was thrombus noted on removal of catheter. Next decision was made to perform PCI and a 3.0 x 28 mm Xience ELISABETH was placed in the proximal SVG as well as the mid to distal SVG. There was still mild thrombus noted however felt best treated medically with antiplatelets and Aggrastat. The filter was recaptured and pulled and final angiograms were performed. Prentervention there was 100% stenosis and CHRIS 0 flow and postintervention there was <10% stenosis and CHRIS-3 flow. MORALES to LAD angiography was performed through the left radial approach with a 6- Fijian PIERRE catheter with subselective use. Given contrast threshold additional images of the left system were not performed however predominantly appeared similar to prior angiography from 2019. A right femoral angiogram showed adequate anatomy for closure and a 6-Fijian Angio-Seal was placed with hemostasis achieved. The left radial sheath was removed and a TR band was placed with hemostasis achieved. The patient tolerated the procedure well. Patient was transported back to the post cat heterization holding area in stable condition. Conscious Sedation: Patient was monitored under the direct supervision of myself for conscious sedation using Versed and fentanyl for a total duration of 96 minutes HEMODYNAMICS: Aorta: 110/76 SELECTIVE CORONARY ARTERIOGRAPHY: LEFT MAIN: The left main is a large caliber vessel which bifurcates into the LAD and circumflex. There is distal left main 40-50% stenosis. LEFT ANTERIOR DESCENDING CORONARY ARTERY: LAD is a large caliber vessel which wraps around to the apex. There is a proximal 30-40% stenosis and after diagonal 1 branch there is 100% mid LAD stenosis. Diagonal 1 is small caliber and has diffuse disease including proximal 90% stenosis. LEFT CIRCUMFLEX CORONARY ARTERY: Left circumflex is a moderate caliber vessel with ostial circumflex 50-60% stenosis and a 60% mid circumflex stenosis. RIGHT CORONARY ARTERY: The right coronary artery was not imaged however noted to be 100% occluded. SVG to OM: known to be 100% occluded SVG to PLV: There is 100% proximal SVG stenosis just prior to previously placed stent SVG to PDA: There is 100% proximal SVG stenosis MORALES to LAD: Widely patent FINAL IMPRESSION: 1. Severe yocha dehe CAD including 100% proximal RCA stenosis, left main 40-50% stenosis, 100% mid LAD stenosis, 50-60% circumflex stenosis 2. Patent MORALES to LAD and occluded SVG to OM, SVG to PLV and newly occluded SVG to PDA 3. Inferior STEMI status post PCI SVG to PDA with 3.0 x 28mm Xience ELISABETH x 2 PLAN: 1. Aggressive risk factor modification per most recent ACC/AHA guidelines. 2. Continue dual antiplatelets with aspirin and Plavix for 12 months 3. IV hydration, monitor kidney function closely 4. Continue Aggrastat for 24 hours given continued high thrombus burden of SVG to PDA 5. If more concern of progressive left coronary artery stenosis may consider repeat angiography with more selective imaging as imaging was subselective
[2023-03-17] MEDS: LIDOCAINE 5% PATCH TOPICAL SCH (18:49)
[2023-03-17] MEDS: BACLOFEN 10 MG TAB PO SCH (20:49)
[2023-03-17] MEDS: atenoloL 50 MG TAB PO SCH (20:49)
[2023-03-17] MEDS: MONTELUKAST 10 MG TAB PO SCH (20:49)
[2023-03-17] MEDS: ATORVASTATIN 80 MG TAB PO SCH (20:50)
[2023-03-17] MEDS ORDERED: amLODIPine 5 MG TAB PO SCH (21:00)
[2023-03-17] MEDS ORDERED: cloNIDine HCL 0.1 MG TAB PO SCH (21:00)
[2023-03-17] MEDS ORDERED: atenoloL 50 MG TAB PO SCH (21:00)
[2023-03-17] MEDS ORDERED: amLODIPine 10 MG TAB PO SCH (21:00)
[2023-03-17] MEDS: FLUTICASONE 110 MCG INHALER INHALATION SCH (22:34)
[2023-03-18] MEDS: ACETAMINOPHEN TAB 325 MG TAB PO PRN ×4 (02:52→22:06)
[2023-03-18 05:33] LABS: Glucose,Whole Blood 152 mg/dL (70-110)
[2023-03-18] MEDS ORDERED: LEVOTHYROXINE 100 MCG TAB PO SCH (06:30)
[2023-03-18 07:06] LABS: African American GFR (CKD) >90 (>60 ml/min/1.73 sqM); Anion Gap 7 mmol/L; Blood Urea Nitrogen 44 mg/dL (7-17); Calcium 8.2 mg/dL (8.4-10.2); Carbon Dioxide 23 mmol/L (22-30); Chloride 108 mmol/L (98-107); Glucose 110 mg/dL (74-99); Non-African American GFR(CKD) 87 (>60 ml/min/1.73 sqM); Potassium 4.2 mmol/L (3.5-5.1); Sodium 138 mmol/L (137-145)
[2023-03-18] MEDS ORDERED: PANTOPRAZOLE 40 MG TABLET PO SCH (07:30)
[2023-03-18 07:46] LABS: Anisocytosis Slight; Basophils # (A) 0.1 k/uL (0-0.2); Basophils % (A) 1 %; Eosinophils # (A) 0.1 k/uL (0-0.7); Eosinophils % (A) 1 %; HCT 26.6 % (34.0-46.0); HGB 8.2 gm/dL (11.4-16.0); Hypochromasia Marked; Lymphocytes # (A) 1.5 k/uL (1.0-4.8); Lymphocytes % (A) 16 %; MCH 24.6 pg (25.0-35.0); MCHC 30.7 g/dL (31.0-37.0); MCV 80.2 fL (80.0-100.0); Mean Platelet Volume 10.2; Microcytosis Slight; Monocytes # (A) 0.8 k/uL (0-1.0); Monocytes % (A) 9 %; Neutrophils # (A) 7.1 k/uL (1.3-7.7); Neutrophils % (A) 73 %; Platelet Count 231 k/uL (150-450); RBC 3.32 m/uL (3.80-5.40); RDW 16.7 % (11.5-15.5); WBC 9.7 k/uL (3.8-10.6)
[2023-03-18] MEDS: FLUTICASONE 110 MCG INHALER INHALATION SCH ×2 (07:58→19:56)
--- NOTE | 2023-03-18 08:32 | P.PN ---
Subjective This is a pleasant 73-year-old female past medical history significant for coronary artery disease status post four-vessel bypass grafting in 2006 with MORALES-LAD, SVG-D1, SVG-OM1 and SVG-PLB, hypertension, dyslipidemia, asthma and gastroesophageal reflux disease. She follows in the office with Dr. Bustos. Patient initially presented to [facility] with chest discomfort and was found to have inferior ST elevations. She therefore was transferred to [facility]. 03/18 She underwent heart catheterization initially from a left radial approach and then a right femoral approach showing occluded SVG to PLV which appear more chronic as well as SVG to PDA occluded. She underwent aspiration thrombectomy, stenting of the SVG to PDA with improvement in flow and resolution of chest pain. She is placed on Aggrastat drip secondary to increased thrombus burden. Today she feels well and denies any chest pain or pressure. Denies any shortness of breath. She did have an episode where she was sitting in her chair which was after an IV had been pulled and may have been some blood and had a bradycardic episode and loss of consciousness per nursing. Patient cannot recall event. She quickly returned to normal and felt fine. Appears most consistent with a vagal episode. GENERAL: This is a 73-year-old female in no apparent distress at the time of my examination. HEENT: Head is atraumatic, normocephalic. Pupils are equal, round. Sclerae anicteric. Conjunctivae are clear. Mucous membranes of the mouth are moist. Neck is supple. There is no jugular venous distention. No carotid bruit is heard. LUNGS: Clear to auscultation no wheezes, rales or rhonchi. No chest wall tenderness is noted on palpation or with deep breathing. HEART: Regular rate and rhythm with systolic ejection murmur at the base, no rubs or gallops. S1 and S2 heard. ABDOMEN: Soft, nontender. Bowel sounds are heard. No organomegaly noted. EXTREMITIES: No evidence of peripheral edema and no calf tenderness noted. VASCULAR: Radial and dorsalis pedis pulses palpated, no evidence of clubbing. NEUROLOGIC: Patient is awake, alert and oriented x3. ASSESSMENT CAD s/p PCI SVG to PDA Loss of consciousness likely related to vagal episode History of coronary artery disease status post bypass grafting Hypertension Dyslipidemia Asthma Gastroesophageal reflux disease Hiatal hernia PLAN Patient's loss of consciousness episode appears related to vagal episode with episode occurring briefly after a IV was pulled. Bradycardic episode likely result of vagal activity. Continue current regimen however hold amlodipine secondary to borderline blood pressures and vagal episode. Continue to antiplatelets with aspirin and Plavix. Continue to monitor and hopeful discharge 24 hours. Await 2-D echo. Objective - Vital Signs Vital signs: Vital Signs Temp 98.7 F 03/18/23 04:00 Pulse 78 03/18/23 07:00 Resp 15 03/18/23 07:00 BP 121/63 03/18/23 07:00 Pulse Ox 83 L 03/18/23 07:00 FiO2 Intake & Output 03/17/23 03/18/23 03/18/23 18:59 06:59 18:59 Intake Total 1503.44 350.16 29.18 Balance 1503.44 350.16 29.18 Weight 102 kg 96.6 kg Intake: IV 953.44 350.16 29.18 Sodium Chloride 0.9% 1, 560 240 20 000 ml In Empty Bag 1 bag @ 80 mls/hr IV .[id number] [facility] Rx#:[id number] Tirofiban 12.5MG-250Ml Ns 73.44 110.16 9.18 250 ml @ 0.075 MCG/KG/ MIN 9.18 mls/hr IV .Q24H [facility] Rx#:[id number] Intake, IV Titration 50 Amount Sodium Chloride 0.9% 1, 50 000 ml @ 0 mls/hr IV .STK -[facility] Rx#:[id number] Oral 500 Other: # Voids 1 0 0 - Labs CBC & Chem 7: 03/18/23 06:19 03/18/23 06:19 Labs: Abnormal Lab Results - Last 24 Hours (Table) 03/17/23 03/18/23 03/18/23 Range/Units 11:03 05:30 06:19 RBC 3.32 L (3.80-5.40) m/uL Hgb 8.2 L (11.4-16.0) gm/dL Hct 26.6 L (34.0-46.0) % MCH 24.6 L (25.0-35.0) pg MCHC 30.7 L (31.0-37.0) g/dL RDW 16.7 H (11.5-15.5) % Chloride (98-107) mmol/L BUN (7-17) mg/dL Glucose (74-99) mg/dL POC Glucose (mg/dL) 121 H 152 H (70-110) mg/dL Calcium (8.4-10.2) mg/dL 03/18/23 Range/Units 06:19 RBC (3.80-5.40) m/uL Hgb (11.4-16.0) gm/dL Hct (34.0-46.0) % MCH (25.0-35.0) pg MCHC (31.0-37.0) g/dL RDW (11.5-15.5) % Chloride 108 H (98-107) mmol/L BUN 44 H (7-17) mg/dL Glucose 110 H (74-99) mg/dL POC Glucose (mg/dL) (70-110) mg/dL Calcium 8.2 L (8.4-10.2) mg/dL
[2023-03-18] MEDS ORDERED: CHOLECALCIFEROL 25 MCG (1000 IU) TABLET PO SCH (09:00)
[2023-03-18] MEDS ORDERED: ASPIRIN 81 MG PO SCH (09:00)
[2023-03-18] MEDS ORDERED: CLOPIDOGREL 75 MG TAB PO SCH ×2 (09:00)
[2023-03-18] MEDS ORDERED: ISOSORBIDE MONONITRATE ER 30 MG TAB.ER.24H PO SCH (09:00)
[2023-03-18] MEDS ORDERED: DULoxetine HCL 30 MG CAPSULE.DR PO SCH (09:00)
[2023-03-18] MEDS ORDERED: ISOSORBIDE MONONITRATE ER 60 MG TAB.ER.24H PO SCH (09:00)
[2023-03-18] MEDS: atenoloL 50 MG TAB PO SCH (09:15)
[2023-03-18] MEDS: LIDOCAINE 5% PATCH TOPICAL SCH (09:18)
[2023-03-18 09:44] VITALS: BMI 35.4
[2023-03-18 11:27] LABS: Glucose,Whole Blood 124 mg/dL (70-110)
--- NOTE | 2023-03-18 12:20 | CT ---
EXAMINATION TYPE: CT brain wo con DATE OF EXAM: 03/18/2023 COMPARISON: 03/30/2020 HISTORY: NAVARRO on blood thinners CT DLP: 1188.4 mGycm Automated exposure control for dose reduction was used. FINDINGS: Right superior frontal gyrus and right posterior cerebellar areas of encephalomalacia likely represen ting sequela of previous trauma or infarcts. Bilateral cerebral white matter hypodensities likely rep resenting chronic microvascular ischemic changes. Brain volume loss changes. Scattered arterial ather osclerotic calcifications. Partial empty sella. No acute intracranial hemorrhage or gross acute corti candy infarct. No midline shift or herniation. Grossly unremarkable orbits. Mild mucosal thickening of the left max illary sinus. Clear mastoid air cells. Degenerative changes of the TMJs. No definite acute calvarial bone fracture identified. Partially empty sella. IMPRESSION: REMOTE ISCHEMIC CHANGE WITH NO EVIDENCE OF ACUTE HEMORRHAGE.
--- NOTE | 2023-03-18 13:00 | CA ---
Transthoracic Echo Report Name: Blanca Trivedi Age: 77 Gender: F : 1945 Exam Date: 03/18/2023 08:20 Exam Location: [facility] Ht (in): 65 Wt (lb): 224 Ordering Physician: Gautam Lr DO ([email or web address]) Attending/Referring Phys: Phlebotomy Services Representative Chloe Rodas RDCS Procedure CPT: Indications: LVEF post AK Cardiac Hx: Technical Quality: Good Contrast 1: Total Dose (mL): Contrast 2: Total Dose (mL): MEASUREMENTS (Male / Female) Normal Values 2D ECHO LV Diastolic Diameter PLAX 5.1 cm 4.2 - 5.9 / 3.9 - 5.3 cm LV Systolic Diameter PLAX 4.0 cm IVS Diastolic Thickness 1.4 cm 0.6 - 1.0 / 0.6 - 0.9 cm LVPW Diastolic Thickness 1.2 cm 0.6 - 1.0 / 0.6 - 0.9 cm LV Relative Wall Thickness 0.5 RV Internal Dim ED PLAX 2.8 cm LA Systolic Diameter LX 4.5 cm 3.0 - 4.0 / 2.7 - 3.8 cm LV Diastolic Volume MOD 4C 97.7 cm??? LV Systolic Volume MOD 4C 60.2 cm??? LV Ejection Fraction MOD 4C 38.4 % LV Diastolic Length 4C 7.5 cm LV Systolic Length 4C 6.5 cm LV Diastolic Volume MOD 2C 140.5 cm??? LV Systolic Volume MOD 2C 83.6 cm??? LV Ejection Fraction MOD 2C 40.5 % LV Diastolic Length 2C 8.2 cm LV Systolic Length 2C 6.9 cm LA Volume 81.8 cm??? 18 - 58 / 22 - 52 cm??? M-MODE Aortic Root Diameter MM 3.2 cm MV E Point Septal Separation 1.2 cm AV Cusp Separation MM 2.1 cm DOPPLER AV Peak Velocity 138.4 cm/s AV Peak Gradient 7.7 mmHg MV Area PHT 3.1 cm??? Mitral E Point Velocity 129.2 cm/s Mitral A Point Velocity 81.9 cm/s Mitral E to A Ratio 1.6 MV Deceleration Time 245.7 ms MV E' Velocity 4.9 cm/s Mitral E to MV E' Ratio 26.5 TR Peak Velocity 260.3 cm/s TR Peak Gradient 27.1 mmHg Right Ventricular Systolic Press 32.0 mmHg FINDINGS Left Ventricle Left ventricular ejection fraction is estimated at 40 %. Left ventricular cavity size normal. Moderate concentric left ventricular hypertrophy. Right Ventricle Normal right ventricular size and function. Right ventricular systolic pressure within normal limits. Right Atrium Normal right atrial size. Left Atrium Moderately increased left atrial diameter. Severely increased left atrial volume. Mildly increased left atrial area. Mitral Valve Mitral valve thickened. Moderate mitral annular calcification. Mild mitral regurgitation. Aortic Valve Focal thickening of the aortic valve cusps. Tricuspid Valve Structurally normal tricuspid valve. Mild tricuspid regurgitation. Pulmonic Valve Pulmonic valve thickened with good excursion. Trace pulmonic regurgitation. Pericardium Normal pericardium. No pericardial effusion. Aorta Normal size aortic root and proximal ascending aorta. CONCLUSIONS Mildly impaired LV function with EF around 45% Thickened anterior and posterior mitral leaflets with mild mitral regurgitation Previewed by: Dr. Aguilar Lord MD (Electronically Signed) Final Date: 18 March 2023 12:59
[2023-03-18] MEDS ORDERED: SODIUM CHLORIDE 0.9% 500 ML 500 ML IV ONE (18:13)
[2023-03-18] MEDS: BACLOFEN 10 MG TAB PO SCH (20:42)
[2023-03-18] MEDS: ATORVASTATIN 80 MG TAB PO SCH (20:42)
[2023-03-18] MEDS: MONTELUKAST 10 MG TAB PO SCH (20:42)
[2023-03-18] MEDS ORDERED: atenoloL 25 MG TAB PO SCH (21:00)
[2023-03-19] MEDS ORDERED: NITROGLYCERIN OINT 1 INCH/GM PACKET TOPICAL PRN (00:53)
[2023-03-19] MEDS ORDERED: HEPARIN SODIUM 1,000 UN/ML (10ML VL) IV ONE (00:53)
[2023-03-19] MEDS ORDERED: HEPARIN SODIUM 1,000 UN/ML (10ML VL) IV PRN (00:53)
[2023-03-19] MEDS ORDERED: HEPARIN SOD,PORK IN 0.45% NACL 25,000 UNIT in 0.45% NACL 1 250ML.BAG IV SCH (01:00)
[2023-03-19] MEDS ORDERED: atenoloL 25 MG TAB PO ONE (01:00)
[2023-03-19 01:19] LABS: Glucose,Whole Blood 190 mg/dL (70-110)
[2023-03-19 01:39] LABS: Anisocytosis Slight; Basophils % (A) 0 %; Eosinophils # (A) 0.1 k/uL (0-0.7); Eosinophils % (A) 1 %; HCT 23.1 % (34.0-46.0); Hypochromasia Marked; Lymphocytes # (A) 1.7 k/uL (1.0-4.8); Lymphocytes % (A) 15 %; MCH 24.3 pg (25.0-35.0); MCHC 30.5 g/dL (31.0-37.0); MCV 79.8 fL (80.0-100.0); Mean Platelet Volume 10.2; Microcytosis Slight; Monocytes # (A) 0.7 k/uL (0-1.0); Monocytes % (A) 6 %; Neutrophils # (A) 8.8 k/uL (1.3-7.7); Neutrophils % (A) 76 %; Platelet Count 224 k/uL (150-450); RBC 2.89 m/uL (3.80-5.40); RDW 17.2 % (11.5-15.5); WBC 11.6 k/uL (3.8-10.6)
[2023-03-19 02:08] LABS: Partial Thromboplastin Time 18.8 sec (22.0-30.0)
[2023-03-19 04:39] VITALS: TEMP 96.3
[2023-03-19] MEDS ORDERED: EPINEPHrine 10 ML SYRINGE (0.1 MG/ML) ONE ×2 (05:24→05:58)
[2023-03-19] MEDS ORDERED: SODIUM BICARB 8.4% 50 ML SYR (1 MEQ/ML) ONE (05:24)
[2023-03-19] MEDS ORDERED: DEXTROSE 5% IN WATER 50 ML BAG ONE (05:24)
[2023-03-19] MEDS ORDERED: LIDOCAINE 2% SYG (PF) 100 MG/5 ML ONE (05:24)
[2023-03-19] MEDS ORDERED: AMIODARONE 50 MG/ML 3 ML VIAL IV ONE (05:24)
[2023-03-19] MEDS ORDERED: MAGNESIUM SULFATE SYG 4.06 MEQ/ML SYRINGE ONE (05:24)
[2023-03-19] MEDS ORDERED: SUCCINYLCHOLINE CHLORIDE 200 MG/10 ML VIAL IV ONE (05:40)
[2023-03-19] MEDS ORDERED: NOREPINEPHRINE 4 MG in SODIUM CHLORIDE 0.9% 250 ML IV SCH (05:45)
--- NOTE | 2023-03-19 06:41 | P.HPIM ---
History of Present Illness H&P Date: 03/17/23 Chief Complaint: STEMI HISTORY OF PRESENT ILLNESS: This is a 79-year-old female one of my patient with a previous medical history significant for CAD post CABG with MORALES to LAD, SVG to D1, SVG to OM1, SVG to PLB, hypertension and hypertensive cardiovascular disease, hyperlipidemia, GERD, hypothyroidism, asthma, hiatal hernia, osteoarthritis, patient was in her usual state of health until today in the morning when she woke up in the morning and went to the bathroom and tried to wash her face, subsequently developed to have a significant crushing chest pain retrosternally associated with nausea but no vomiting, she contacted her , Who take her to the emergency department at [facility] where she was found to have an inferior wall ST elevation microinfarction, she was transported via EMS to [facility] emergency department, where she was seen and evaluated and she was transported to the laboratory cureman under the care of Dr. Lr underwent left heart catheterization and she was found to have collapse of her graft saphenous venous graft to the PDA DA, and patient also was found to have a significant thrombus burden as well, ended up having angioplasty with stent placement and also clot removed, and she was admitted to intensive care unit after she has suffered ST elevation [place]. REVIEW OF SYSTEMS: Constitutional: No documented fever, no chills, no night sweats. No weight change. No weakness, fatigue or lethargy. No daytime sleepiness. EENT: No headache. No blurred vision or double vision, no loss of vision. No loss of Hearing, no ringing in the ears, no dizziness. No nasal drainage or congestion. No epistaxis. No sore throat. Lungs: No shortness of breath, no cough, no sputum production. No wheezing. R eports dyspnea with activity. Cardiovascular: positive for chest pain, no lower extremity edema. No palpitations. No paroxysmal nocturnal dyspnea. No orthopnea. No lightheadedness or dizziness. No syncopal episodes. Abdominal: Reports abdominal pain. No nausea, vomiting. No diarrhea. No con stipation. No bloody or tarry stools reports loss of appetite. Genitourinary: No dysuria, increased frequency, urgency. No urinary retention. Musculoskeletal: No myalgias. No muscle weakness, no gait dysfunction, no frequent falls. positive for back pain. No neck pain. Integumentary: No wounds, positive for bruiseson her arms No rash or pruritus. No unusual bruising. No change in hair or nails. Neurologic: No aphasia. No facial droop. No change in mentation. No head injury. No headache. No paralysis. No paresthesia. Psychiatric: positive for depression. No anxiety. No mood swings. Endocrine: No abnormal blood sugars. No weight change. PAST MEDICAL HISTORY: CAD post CABG with MORALES to LAD SVG to D1 SVG to 1 SVG to P LV and PDA Hypertension and hypertensive cardio vascular disease. Mixed hyperlipidemia. GERD with esophagitis. Hypothyroidism. Mild persistent asthma. ALLERGIC rhinitis. Osteoarthritis. Polymyalgia rheumatica. PAST SURGICAL HISTORY: CABG 2006 with MORALES to LAD SVG to D1 SVG to OM1 SVG to P LV SVG to PDA Cholecystectomy. Shoulder surgery. Left total knee arthroplasty 2. Right total knee arthroplasty Cataract SOCIAL HISTORY: Patient is a lifelong nonsmoker she denies any alcohol ingestion, no drug use or abuse. FAMILY HISTORY: Father at age of 70 from [place] and congestive heart failure mother at age of 89 from CVA and hypertension patient had 4 brothers one from motor vehicle accident one from hepatitis one from throat cancer and the other one from lung cancer patient has 4 sisters one with rheumatoid arthritis and SLE and the other sister at the age of 85 from brain tumor and the other 2 sisters are finePHYSICAL EXAMINATION: General: 77-year-old female laying down in bed in no apparent d istress. HEENT: Head is atraumatic, normocephalic, pupils were equal round reactive to light and recommendation, extraocular muscle movement were intact, sclera nonicteric, conjunctivae were pale, mucous membranes of the mouth are somewhat dry. Neck: Supple, no JVP, normal carotid upstroke bilaterally, no lymphadenopathy. Chest: Decreased breath sounds at the bases, few rhonchi, no expiratroty whe ezes, no chest wall tenderness, no intercostal retractions. Heart: First heart sound is normal, second heart sounds normal there is systolic ejection murmur 2/6 located in the left sternal border. Abdomen: Soft, nontender, nondistended, positive bowel sounds. Extremities: There is no edema no calf tenderness DP +2 bilaterally. Neurologic examination: Patient is awake alert and oriented X3, cranial nerves II-12 appear grossly intact, muscle power were 5 out of 5 in upper extremities and 5 out of 5 in bilateral lower extremities, deep tendon reflexes normal bilaterally. ASSESSMENT AND PLAN: 1. Inferior wall ST elevation myocardial infarction status post left heart catheterization and PCI of the sevens venous graft to the PDA with a large burden of multiple thrombi status post treatment with Aggrastat. Continue treatment as per cardiology recommendation in the ICU continue aspirin 81 mg once every day, continue Plavix 75 mg once every day, continue atorvastatin 80 mg once every day, continue atenolol 25 mg orally twice every day, continue to monitor the patient intensive care unit for the next 1 or 2 days. 2. Hypertension and hypertensive perivascular disease. Continue patient on atenolol 25 mg orally twice every day as well as amlodipine 5 mg orally once every day. 3. Mixed hyperlipidemia continue patient on atorvastatin 80 mg once every day, monitor the patient dependent, keep LDL 55-70. 4. Hypothyroidism. Continue patient on Synthroid 100 g orally once every day. 5. History of polymyalgia rheumatica. Patient has been on prednisone. 6. History of iron deficiency anemia. Has workup as an outpatient. 7. History of osteoarthritis. Continue current pain management. 8. Spondylosis of the lumbar spine. Continue baclofen 10 mg at bedtime. 9. Obesity diet and exercise and weight loss, 10. Depression. Continue patient on duloxetine 90 mg orally once every day. 11. ALLERGIC rhinitis. Continue patient on montelukast 10 mg at bedtime as well as Flonase nasal spray 1 puff in each nostril twice every day. 12. GERD with GI prophylaxis. Continue patient on Protonix 40 mg once every day. 13. DVT prophylaxis. Patient did receive Aggrastat 14. Prognosis is guarded. Past Medical History Past Medical History: Asthma, Coronary Artery Disease (CAD), Chest Pain / Angina, GERD/Reflux, Hyperlipidemia, Hypertension, Myocardial Infarction ([place]), Osteoarthritis (OA), Thyroid Disorder Additional Past Medical History / Comment(s): mi 03/17/23 Last Myocardial Infarction Date:: 03/17/23 History of Any Multi-Drug Resistant Organisms: None Reported Past Surgical History: Cholecystectomy, Coronary Bypass/CABG, Heart Catheterization With Stent, Joint Replacement, Orthopedic Surgery Additional Past Surgical History / Comment(s): shoulder, quad bypass 2006, 2 left total knee arthroplasty 1 right total knee arthroplasty. 03/17/23 received stents x2 to her SVG to the PDA Past Anesthesia/Blood Transfusion Reactions: No Reported Reaction Date of Last Stent Placement:: 03/17/23 Past Psychological History: Depression Additional Psychological History / Comment(s): patient refuses to answer questions re depression and became angry. she did respond that she did not wish to be Smoking Status: Never smoker Past Alcohol Use History: None Reported Past Drug Use History: None Reported - Past Family History Mother Family Medical History: Hypertension Father Family Medical History: Congestive Heart Failure (CHF) Brother(s) Family Medical History: Cancer Sister(s) Family Medical History: No Reported History Medications and Allergies Home Medications Medication Instructions Recorded Confirmed Type Albuterol Sulfate [Proair Hfa] 2 puff INHALATION RT-Q6H PRN 12/18/16 03/17/23 History Calcium Carbonate/Vitamin D3 1 tab PO BID 12/18/16 03/17/23 History [Calcium 500-Vit D3 15 Mcg (600 Iu)] Lansoprazole [Prevacid] 30 mg PO DAILY 12/18/16 03/17/23 History Levothyroxine Sodium [Synthroid] 100 mcg PO DAILY 12/18/16 03/17/23 History Mometasone Furoate [Asmanex 1 puff INHALATION RT-HS 12/18/16 03/17/23 History Inhaler] Montelukast [Singulair] 10 mg PO HS 12/18/16 03/17/23 History Potassium Chloride [K-Tab ER] 10 meq PO DAILY 12/18/16 03/17/23 History DULoxetine HCL [Cymbalta] 30 mg PO DAILY 01/21/19 03/17/23 History Aspirin 81 mg PO DAILY chew 01/23/19 03/17/23 Rx Nitroglycerin Sl Tabs [Nitrostat] 0.4 mg SUBLINGUAL Q5M PRN #25 tab 01/23/19 03/17/23 Rx Atorvastatin Calcium [Lipitor] 40 mg PO HS 03/17/23 03/17/23 History Cholecalciferol [Vitamin D3 (25 50 mcg PO DAILY 03/17/23 03/17/23 History Mcg = 1000 Iu)] DULoxetine HCL [Cymbalta] 60 mg PO DAILY 03/17/23 03/17/23 History Furosemide [Lasix] 20 mg PO DAILY 03/17/23 03/17/23 History Isosorbide Mononitrate ER [Imdur] 60 mg PO DAILY 03/17/23 03/17/23 History amLODIPine [Norvasc] 5 mg PO HS 03/17/23 03/17/23 History atenoloL [Tenormin] 50 mg PO BID 03/17/23 03/17/23 History Allergies Allergy/AdvReac Type Severity Reaction Status Date / Time hydromorphone [From Dilaudid] Allergy Itching Verified 03/17/23 14:28 Penicillins Allergy Rash/Hives Verified 03/17/23 14:28 Sulfa (Sulfonamide Allergy Rash/Hives Verified 03/17/23 14:28 Antibiotics) GENIE Inhibitors AdvReac Swelling Verified 03/17/23 14:28 Physical Exam Vitals: Vital Signs Temp Pulse Pulse Resp BP BP Pulse Ox 03/17/23 18:00 78 20 115/62 92 L 03/17/23 17:00 78 17 123/70 97 03/17/23 16:30 89 25 H 116/75 95 03/17/23 16:00 99.1 F 85 10 L 136/73 96 03/17/23 15:30 78 11 L 124/81 94 L 03/17/23 15:00 81 18 121/58 93 L 03/17/23 14:30 73 12 131/64 03/17/23 14:00 76 16 130/66 95 03/17/23 13:30 73 122/64 95 03/17/23 13:00 79 12 132/72 94 L 03/17/23 12:30 83 124/72 95 03/17/23 12:00 76 18 142/76 88 L 03/17/23 11:30 75 16 142/76 96 03/17/23 11:15 78 12 97 03/17/23 11:08 98 F 03/17/23 11:05 98 F 75 16 134/81 03/17/23 10:44 76 16 152/77 95 Intake and Output 03/17/23 03/17/23 03/17/23 06:59 14:59 22:59 Intake Total 976.72 526.72 Balance 976.72 526.72 Intake: IV 676.72 276.72 Sodium Chloride 0.9% 1, 320 240 000 ml In Empty Bag 1 bag @ 80 mls/hr IV .[id number] [facility] Rx#:[id number] Tirofiban 12.5MG-250Ml Ns 36.72 36.72 250 ml @ 0.075 MCG/KG/ MIN 9.18 mls/hr IV .Q24H [facility] Rx#:[id number] Intake, IV Titration 50 Amount Sodium Chloride 0.9% 1, 50 000 ml @ 0 mls/hr IV .STK -MED ONE Rx#:[id number] Oral 250 250 Other: # Voids 1 Weight 102 kg Results CBC & Chem 7: 03/19/23 01:24 03/18/23 06:19 Labs: Abnormal Lab Results - Last 24 Hours (Table) 03/17/23 Range/Units 11:03 POC Glucose (mg/dL) 121 H (70-110) mg/dL Thrombosis Risk Factor Assmnt - Choose All That Apply Each Factor Represents 1 point: Abnormal pulmonary function (COPD), Acute [place], M edical pt on bed rest, Obesity (BMI >25) Each Risk Factor Represents 2 Points: Arthroscopic surgery, Central venous access, Patient confined to bed Each Risk Factor Represents 3 Points: Age 75 years or older Other congenital or acquired thrombophilia - If yes, enter type in comment: No Thrombosis Risk Factor Assessment Total Risk Factor Score: 13 Thrombosis Risk Factor Assessment Level: High Risk
--- NOTE | 2023-03-19 06:45 | P.PN ---
Subjective Progress Note Date: 03/18/23 HISTORY OF PRESENT ILLNESS: This is a 79-year-old female one of my patient with a previous medical history significant for CAD post CABG with MORALES to LAD, SVG to D1, SVG to OM1, SVG to PLB, hypertension and hypertensive cardiovascular disease, hyperlipidemia, GERD, hypothyroidism, asthma, hiatal hernia, osteoarthritis, patient was in her usual state of health until today in the morning when she woke up in the morning and went to the bathroom and tried to wash her face, subsequently developed to have a significant crushing chest pain retrosternally associated with nausea but no vomiting, she contacted her , Who take her to the emergency department at [facility] where she was found to have an inferior wall ST elevation microinfarction, she was transported via EMS to [facility] emergency department, where she was seen and evaluated and she was transported to the laboratory technology teacher under the care of Dr. Lr underwent left heart catheterization and she was found to have collapse of her graft saphenous venous graft to the PDA DA, and patient also was found to have a significant thrombus burden as well, ended up having angioplasty with stent placement and also clot removed, and she was admitted to intensive care unit after she has suffered ST elevation [place]. 03/18: Patient is laying down in bed in no apparent distress, she continues to have significant low back pain, she denies any chest pain at this time or shortness breath, she is having multiple bruises in the upper extremities, she denies any abdominal pain, nausea vomiting or diarrhea, patient has been seen earlier by cardiology, we will continue current treatment plan, we'll try to keep the patient hospital for another 24 hours for possible cardiac arrhythmias, hopefully she will be discharged home in the next 24 hours. REVIEW OF SYSTEMS: Constitutional: No documented fever, no chills, no night sweats. No weight change. No weakness, fatigue or lethargy. No daytime sleepiness. EENT: No headache. No blurred vision or double vision, no loss of vision. No loss of Hearing, no ringing in the ears, no dizziness. No nasal drainage or congestion. No epistaxis. No sore throat. Lungs: No shortness of breath, no cough, no sputum production. No wheezing. Reports dyspnea with activity. Cardiovascular: No chest pain, no lower extremity edema. No palpitations. No paroxysmal nocturnal dyspnea. No orthopnea. No lightheadedness or dizziness. No syncopal episodes. Abdominal: Reports abdominal pain. No nausea, vomiting. No diarrhea. No constipation. No bloody or tarry stools reports loss of appetite. Genitourinary: No dysuria, increased frequency, urgency. No urinary retention. Musculoskeletal: No myalgias. No muscle weakness, no gait dysfunction, no frequent falls. No back pain. No neck pain. Integumentary: No wounds, no lesions. No rash or pruritus. No unusual bruising. No change in hair or nails. Neurologic: No aphasia. No facial droop. No change in mentation. No head injury. No headache. No paralysis. No paresthesia. Psychiatric: No depression. No anxiety. No mood swings. Endocrine: No abnormal blood sugars. No weight change. finePHYSICAL EXAMINATION: General: 77-year-old female laying down in bed in no apparent distress. HEENT: Head is atraumatic, normocephalic, pupils were equal round reactive to light and recommendation, extraocular muscle movement were intact, sclera nonicteric, conjunctivae were pale, mucous membranes of the mouth are somewhat dry. Neck: Supple, no JVP, normal carotid upstroke bilaterally, no lymphadenopathy. Chest: Decreased breath sounds at the bases, few rhonchi, no expiratroty wheezes, no chest wall tenderness, no intercostal retractions. Heart: First heart sound is normal, second heart sounds normal there is systolic ejection murmur 2/6 located in the left sternal border. Abdomen: Soft, nontender, nondistended, positive bowel sounds. Extremities: There is no edema no calf tenderness DP +2 bilaterally. Neurologic examination: Patient is awake alert and oriented X3, cranial nerves II-12 appear grossly intact, muscle power were 5 out of 5 in upper extremities and 5 out of 5 in bilateral lower extremities, deep tendon reflexes normal bilaterally. ASSESSMENT AND PLAN: 1. Inferior wall ST elevation myocardial infarction status post left heart catheterization and PCI of the sevens venous graft to the PDA with a large burden of multiple thrombi status post treatment with Aggrastat. Continue treatment as per cardiology recommendation in the ICU continue aspirin 81 mg once every day, continue Plavix 75 mg once every day, continue atorvastatin 80 mg once every day, continue atenolol 25 mg orally twice every day, continue to monitor the patient intensive care unit, hopefully she will be able to get out of here in the next 1 or 2 days per 2. Hypertension and hypertensive perivascular disease. Continue patient on atenolol 25 mg orally twice every day as well as amlodipine 5 mg orally once every day. 3. Mixed hyperlipidemia continue patient on atorvastatin 80 mg once every day, monitor the patient dependent, keep LDL 55-70. 4. Hypothyroidism. Continue patient on Synthroid 100 g orally once every day. 5. History of polymyalgia rheumatica. Patient has been on prednisone. 6. History of iron deficiency anemia. Has workup as an outpatient. 7. History of osteoarthritis. Continue current pain management. 8. Spondylosis of the lumbar spine. Continue baclofen 10 mg at bedtime. 9. Obesity diet and exercise and weight loss, 10. Depression. Continue patient on duloxetine 90 mg orally once every day. 11. ALLERGIC rhinitis. Continue patient on montelukast 10 mg at bedtime as well as Flonase nasal spray 1 puff in each nostril twice every day. 12. GERD with GI prophylaxis. Continue patient on Protonix 40 mg once every day. 13. DVT prophylaxis. Patient did receive Aggrastat 14. Prognosis is guarded. 15. Home tomorrow morning. Objective - Vital Signs Vital signs: Vital Signs Temp 96.3 F L 03/19/23 04:00 Pulse 71 03/19/23 04:30 Resp 44 H 03/19/23 04:30 BP 111/67 03/19/23 04:30 Pulse Ox 98 03/19/23 04:30 FiO2 Intake & Output 03/18/23 03/18/23 03/19/23 06:59 18:59 06:59 Intake Total 350.16 469.18 630 Output Total 0 550 Balance 350.16 469.18 80 Weight 96.6 kg 96.6 kg 98.4 kg Intake: IV 350.16 69.18 10 0.9 @ KVO 10 Sodium Chloride 0.9% 1, 240 60 000 ml In Empty Bag 1 bag @ 80 mls/hr IV .[id number] [facility] Rx#:[id number] Tirofiban 12.5MG-250Ml Ns 110.16 9.18 250 ml @ 0.075 MCG/KG/ MIN 9.18 mls/hr IV .Q24H [facility] Rx#:[id number] Intake, IV Titration 500 Amount Sodium Chloride 0.9% 500 500 ml 500 ml @ 999 mls/hr IV .Q31M ONE Rx#:[id number] Oral 400 120 Output: Urine 0 550 Other: Voiding Method Bedpan # Voids 0 0 0 # Bowel Movements 0 - Labs CBC & Chem 7: 03/19/23 01:24 03/18/23 06:19 Labs: Abnormal Lab Results - Last 24 Hours (Table) 03/18/23 03/18/23 03/18/23 Range/Units 06:19 06:19 11:25 WBC (3.8-10.6) k/uL RBC 3.32 L (3.80-5.40) m/uL Hgb 8.2 L (11.4-16.0) gm/dL Hct 26.6 L (34.0-46.0) % MCV (80.0-100.0) fL MCH 24.6 L (25.0-35.0) pg MCHC 30.7 L (31.0-37.0) g/dL RDW 16.7 H (11.5-15.5) % Neutrophils # (1.3-7.7) k/uL APTT (22.0-30.0) sec Chloride 108 H (98-107) mmol/L BUN 44 H (7-17) mg/dL Glucose 110 H (74-99) mg/dL POC Glucose (mg/dL) 124 H (70-110) mg/dL Calcium 8.2 L (8.4-10.2) mg/dL 03/19/23 03/19/23 03/19/23 Range/Units 01:17 01:24 01:24 WBC 11.6 H (3.8-10.6) k/uL RBC 2.89 L (3.80-5.40) m/uL Hgb 7.0 L (11.4-16.0) gm/dL Hct 23.1 L (34.0-46.0) % MCV 79.8 L (80.0-100.0) fL MCH 24.3 L (25.0-35.0) pg MCHC 30.5 L (31.0-37.0) g/dL RDW 17.2 H (11.5-15.5) % Neutrophils # 8.8 H (1.3-7.7) k/uL APTT 18.8 L (22.0-30.0) sec Chloride (98-107) mmol/L BUN (7-17) mg/dL Glucose (74-99) mg/dL POC Glucose (mg/dL) 190 H (70-110) mg/dL Calcium (8.4-10.2) mg/dL
--- NOTE | 2023-03-19 07:05 | P.EN ---
patient went into PEA cardiopulmonoary arrest , CODE blue activated , CPR initiated following ACLS protocol please refer to paper chart for full event and meds given patient had an initial brief code with ROSC after 2 rounds of CPR, then within few minutes experienced another Code blue event , this episode was prolonged, she was intubated, then she started having pulseless Vtach requiring shocking , amiodarone bolus , and cardiology recommended lidocaine bolus. this CPR effort went on for over 30 minutes, patient started bleeding through her ET tube, and continued to have asystole despite multiple rounds of epi. CPR effort was ceased and patient . family notified ICU attending notified RN to notify primary team cardiology notified
[2023-03-19 07:45] VITALS: BP 107/56; PULSE 80; RESP 14
[2023-03-19] MEDS ORDERED: ISOSORBIDE MONONITRATE ER 30 MG TAB.ER.24H PO SCH (09:00)
--- NOTE | 2023-03-19 11:40 | P.DS ---
Providers Date of admission: 03/17/23 08:28 Expected date of discharge: 03/19/23 Attending physician: Rafi Tiwari Consults: 03/17/23 10:56 Consult Physician Routine Consulting Provider: [facility] Consult Reason/Comments: Post Interventional Patient Do you want consulting provider notified?: Already Contacted 03/19/23 05:42 Consult Physician Routine Consulting Provider: Elsie Francisco Reason/Comments: ICU management Do you want consulting provider notified?: Already Contacted Primary care physician: Rafi Tiwari Hospital Course: HISTORY OF PRESENT ILLNESS: This is a 79-year-old female one of my patient with a previous medical history significant for CAD post CABG with MORALES to LAD, SVG to D1, SVG to OM1, SVG to PLB, hypertension and hypertensive cardiovascular disease, hyperlipidemia, GERD, hypothyroidism, asthma, hiatal hernia, osteoarthritis, patient was in her usual state of health until today in the morning when she woke up in the morning and went to the bathroom and tried to wash her face, subsequently developed to have a significant crushing chest pain retrosternally associated with nausea but no vomiting, she contacted her , Who take her to the emergency department at [facility] where she was found to have an inferior wall ST elevation microinfarction, she was transported via EMS to [facility] emergency department, where she was seen and evaluated and she was transported to the packing house laborer under the care of Dr. Lr underwent left heart catheterization and she was found to have collapse of her graft saphenous venous graft to the PDA DA, and patient also was found to have a significant thrombus burden as well, ended up having angioplasty with stent placement and also clot removed, and she was admitted to intensive care unit after she has suffered ST elevation MN. 03/18: Patient is laying down in bed in no apparent distress, she continues to have significant low back pain, she denies any chest pain at this time or shortness breath, she is having multiple bruises in the upper extremities, she denies any abdominal pain, nausea vomiting or diarrhea, patient has been seen earlier by cardiology, we will continue current treatment plan, we'll try to keep the patient hospital for another 24 hours for possible cardiac arrhythmias, hopefully she will be discharged home in the next 24 hours. 03/19: Patient had multiple episodes of bradycardia yesterday, she ended up going to a pulseless electrical activity with CODE BLUE activated initially and she was intubated and she went for another episode of a CODE BLUE required intubation and recurrent ventricular tachycardia requiring DC shocks, this is went for 30 minutes and patient started to bleed from the ET tube, CPR was seiz ed and the patient . Discharge diagnoses: 1. Pulseless electrical activity with cardiac arrest followed by CPR per ACLS protocol with episodes of ventricular tachycardia 1. Inferior wall ST elevation myocardial infarction status post left heart catheterization and PCI of the sevens venous graft to the PDA with a large burden of multiple thrombi status post treatment with Aggrastat. 2. Hypertension and hypertensive perivascular disease. 3. Mixed hyperlipidemia 4. Hypothyroidism. 5. History of polymyalgia rheumatica. 6. History of iron deficiency anemia. 7. History of osteoarthritis. 8. Spondylosis of the lumbar spine. 9. Obesity 10. Depression. 11. ALLERGIC rhinitis. 12. GERD Plan - Discharge Summary Discharge Rx Participant: No New Discharge Prescriptions: No Action Calcium Carbonate/Vitamin D3 [Calcium 500-Vit D3 15 Mcg (600 Iu)] 1 tab PO BID Albuterol Sulfate [Proair Hfa] 2 puff INHALATION RT-Q6H PRN PRN Reason: Shortness Of Breath Montelukast [Singulair] 10 mg PO HS Mometasone Furoate [Asmanex Inhaler] 1 puff INHALATION RT-HS Potassium Chloride [K-Tab ER] 10 meq PO DAILY Levothyroxine Sodium [Synthroid] 100 mcg PO DAILY Lansoprazole [Prevacid] 30 mg PO DAILY DULoxetine HCL [Cymbalta] 30 mg PO DAILY Aspirin 81 mg PO DAILY chew Nitroglycerin Sl Tabs [Nitrostat] 0.4 mg SUBLINGUAL Q5M PRN #25 tab PRN Reason: Chest Pain Cholecalciferol [Vitamin D3 (25 Mcg = 1000 Iu)] 50 mcg PO DAILY Isosorbide Mononitrate ER [Imdur] 60 mg PO DAILY Furosemide [Lasix] 20 mg PO DAILY DULoxetine HCL [Cymbalta] 60 mg PO DAILY atenoloL [Tenormin] 50 mg PO BID amLODIPine [Norvasc] 5 mg PO HS Atorvastatin Calcium [Lipitor] 40 mg PO HS Discharge Medication List Albuterol Sulfate [Proair Hfa] 2 puff INHALATION RT-Q6H PRN 12/18/16 [History] Calcium Carbonate/Vitamin D3 [Calcium 500-Vit D3 15 Mcg (600 Iu)] 1 tab PO BID 12/18/16 [History] Lansoprazole [Prevacid] 30 mg PO DAILY 12/18/16 [History] Levothyroxine Sodium [Synthroid] 100 mcg PO DAILY 12/18/16 [History] Mometasone Furoate [Asmanex Inhaler] 1 puff INHALATION RT-HS 12/18/16 [History] Montelukast [Singulair] 10 mg PO HS 12/18/16 [History] Potassium Chloride [K-Tab ER] 10 meq PO DAILY 12/18/16 [History] DULoxetine HCL [Cymbalta] 30 mg PO DAILY 01/21/19 [History] Aspirin 81 mg PO DAILY chew 01/23/19 [Rx] Nitroglycerin Sl Tabs [Nitrostat] 0.4 mg SUBLINGUAL Q5M PRN #25 tab 01/23/19 [Rx] Atorvastatin Calcium [Lipitor] 40 mg PO HS 03/17/23 [History] Cholecalciferol [Vitamin D3 (25 Mcg = 1000 Iu)] 50 mcg PO DAILY 03/17/23 [History] DULoxetine HCL [Cymbalta] 60 mg PO DAILY 03/17/23 [History] Furosemide [Lasix] 20 mg PO DAILY 03/17/23 [History] Isosorbide Mononitrate ER [Imdur] 60 mg PO DAILY 03/17/23 [History] amLODIPine [Norvasc] 5 mg PO HS 03/17/23 [History] atenoloL [Tenormin] 50 mg PO BID 03/17/23 [History]
--- NOTE | 2023-03-24 14:18 | CDI ---
Documentation Clarification Form Date: 03/24/2023 2:00:53 PM From: Alia Suresh RN CCDS Phone: [phone] Admit Date: 03/17/2023 8:28:00 AM Patient Name: Blanca Trivedi Visit Number: [id number] Discharge Date: 03/19/2023 10:02:00 AM ATTENTION: The Clinical Documentation Specialists (CDI) and [facility] Coding Staff appreciate your assistance in clarifying documentation. Please respond to the clarification below the line at the bottom and electronically sign. The CDI & [facility] Coding staff will review the response and follow-up if needed. Please note: Queries are made part of the Legal Health Record. If you have any questions, please contact the author of this message via ITS. Dr. Rafi Tiwari There is documentation of patient started to bleed form the ET tube, 03/19, DCS. Additional clarification is requested. History/Risk Factors: 79-year-old female presents from [facility] where she was found to have an inferior wall ST elevation microinfarction. 03/17, H&P. Clinical Indicators: 03/19, Code Blue Note: Patent went into PEA cardiopulmonary arrest, CPR initiated following ACLS protocol: Brief code with ROSC after two rounds of CPR then another Code blue event was prolonged, intubated, pulseless Vtach requiring shock, Amiodarone bolus, Lidocaine bolus. CPR lasted over thirty minutes. Patient started bleeding through her ET tube, continued to have asystole despite multiple rounds of epi. CPR was ceased. Treatment: CPR stopped Can you please clarify the bleeding from the ET tube? [ ] Bleeding secondary to intubation [ X ] Bleeding secondary to CPR [ X ] Bleeding secondary to other etiology (please specify)___the use of Aggrestat [ ] Other, please specify [ ] Unable to determine (Template Last Revised: January 2021) MTDD
== END 2023-03-19 10:02 | disposition expired | DRG 246 ==
LOC: 3SCARD 08:28 → 2SICU 10:20
PROVIDERS: ADMIT Internal Medicine; ATTEND Internal Medicine
PROC: 027134Z Dilation of Coronary Artery, Two Arteries with Drug-eluting Intraluminal Device, Percutaneous Approach (ICD-10-PCS; principal; 2023-03-17 10:00)
PROC: 02C03ZZ Extirpation of Matter from Coronary Artery, One Artery, Percutaneous Approach (ICD-10-PCS; 2023-03-17 10:00)
PROC: B2131ZZ Fluoroscopy of Multiple Coronary Artery Bypass Grafts using Low Osmolar Contrast (ICD-10-PCS; 2023-03-17 10:00)
PROC: 5A12012 Performance of Cardiac Output, Single, Manual (ICD-10-PCS; 2023-03-19)
PROC: 0BH18EZ Insertion of Endotracheal Airway into Trachea, Via Natural or Artificial Opening Endoscopic (ICD-10-PCS; 2023-03-19)
PROC: 5A2204Z Restoration of Cardiac Rhythm, Single (ICD-10-PCS; 2023-03-19)
DX: T82.218A Other mechanical complication of coronary artery bypass graft, initial encounter (principal); I21.19 ST elevation (STEMI) myocardial infarction involving other coronary artery of inferior wall; I21.A9 Other myocardial infarction type; I25.719 Atherosclerosis of autologous vein coronary artery bypass graft(s) with unspecified angina pectoris; I47.20 Ventricular tachycardia, unspecified; I11.9 Hypertensive heart disease without heart failure; E03.9 Hypothyroidism, unspecified; J45.909 Unspecified asthma, uncomplicated; J45.30 Mild persistent asthma, uncomplicated; M35.3 Polymyalgia rheumatica; D50.9 Iron deficiency anemia, unspecified; E66.9 Obesity, unspecified; F32.A Depression, unspecified; K21.9 Gastro-esophageal reflux disease without esophagitis; K44.9 Diaphragmatic hernia without obstruction or gangrene; M19.90 Unspecified osteoarthritis, unspecified site; E78.2 Mixed hyperlipidemia; K21.00 Gastro-esophageal reflux disease with esophagitis, without bleeding; M47.816 Spondylosis without myelopathy or radiculopathy, lumbar region; I46.2 Cardiac arrest due to underlying cardiac condition; R58 Hemorrhage, not elsewhere classified; T45.8X5A Adverse effect of other primarily systemic and hematological agents, initial encounter; R55 Syncope and collapse; Y79.2 Prosthetic and other implants, materials and accessory orthopedic devices associated with adverse incidents; Y83.2 Surgical operation with anastomosis, bypass or graft as the cause of abnormal reaction of the patient, or of later complication, without mention of misadventure at the time of the procedure; Z96.653 Presence of artificial knee joint, bilateral; Z68.36 Body mass index [BMI] 36.0-36.9, adult; Z95.1 Presence of aortocoronary bypass graft; Z79.890 Hormone replacement therapy; Z82.49 Family history of ischemic heart disease and other diseases of the circulatory system; Z79.82 Long term (current) use of aspirin; Z79.899 Other long term (current) drug therapy; Z88.5 Allergy status to narcotic agent; Z88.0 Allergy status to penicillin; Z88.2 Allergy status to sulfonamides; Z88.8 Allergy status to other drugs, medicaments and biological substances
CPT/HCPCS: 70450; 80048; 85025; 85610; 85730; 92950; 92973; 93306; 93455; 94640